=== PATIENT | male | born 1965 | race Caucasian/White ===

== ENCOUNTER → 2020-08-06 14:42 | Outpatient (BNVA) | payer MEDICAID, SELFPAY | PROVIDERS: Visit Provider Orthopaedic Surgery | DX: Z01.812 Encounter for preprocedural laboratory examination (principal); Z20.822 Contact with and (suspected) exposure to COVID-19 | CPT/HCPCS: 87635 ==

== ENCOUNTER 2020-08-12 05:32 | Day surgery (SDC) | payer MEDICAID, SELFPAY ==
[2020-08-11 17:14] VITALS: BMI 35.3
[2020-08-12] VITALS (8 sets, daily range): BP systolic 127–151; BP diastolic 87–99; PULSE 68–84; RESP 12–19; TEMP 36.1–36.5; O2SAT 97–100
[2020-08-12] MEDS: acetaminophen 500 mg Tablet 1000 MG PO (06:33)
[2020-08-12] MEDS: sodium chloride 0.9% 1,000 ML 30 ML IV (06:34)
[2020-08-12] MEDS: midazolam 1 mg/mL INJ 5 ML 5 MG IVP (06:50)
--- NOTE | 2020-08-12 07:06 | W.PM.OPSUD ---
Surgery/Procedure H&P Update DATE OF PROCEDURE: August 12, 2020 DATE H&P PERFORMED: 07/27/20 PREOP DIAGNOSIS: Rotator cuff tear Right shoulder PLANNED PROCEDURE: Operation Date: 08/12/20 07:00 Proposed Procedures p Shoulder Arthroscopy with subacromial decompression [id number] S43.421A(Right) - Yair Prather MD s Rotator Cuff Repair(Not Applicable) - Yair Prather MD
--- NOTE | 2020-08-12 07:07 | ANES.PREANE2 ---
Pre-Anesthetic Assessment Pre-Anesthetic Assessment: Height/Weight: Height 1.85 m Weight 121.563 kg Temp Pulse Resp BP Pulse Ox 97.7 F 84 18 127/87 98 08/12/20 06:05 08/12/20 06:05 08/12/20 06:05 08/12/20 06:05 08/12/20 06:05 Preop Diagnosis: Rotator cuff tear Right shoulder Proposed Procedure: Operation Date: 08/12/20 07:00 Proposed Procedures p Shoulder Arthroscopy with subacromial decompression [id number] S43.421A(Right) - Yair Prather MD s Rotator Cuff Repair(Not Applicable) - Yair Prather MD Was Beta Bj taken within 24 hours: Yes Was Clonidine taken within 24 hours: N/A Last intake: Intake Last Liquid Date 08/11/20 Last Liquid Time 22:00 Last Solid Date 08/11/20 Last Solid Time 22:00 Social: Social History: Tobacco and No alcohol Exam: Pre-Anes Outpt Exam: alert, oriented x 3 and regular rate & rhythm Airway: Submandibular: WNL Cervical ROM: WNL MP: 2 Dentition: Full Additional comments: Poor dentition Pulmonary: Pulmonary: COPD CV/HEM: CV/HEM: Arrythmia Neuropsych: Neuropsych: Neuropathy Comments: Chronic pain Anesthetic Plan: ASA status: 3 Anesthesia: General and Regional (specify below) (Right interscalene) Risk of > 500 ml blood loss (7ml/kg in children): No Meds/Allergies Current Medications: Current Medications Generic Name Dose Route Start Last Admin Trade Name Freq PRN Reason Stop Dose Admin Sodium Chloride 1,000 mls @ 30 ml s/hr 08/12/20 06:00 08/12/20 06:34 Sodium Chloride 0.9% IV 08/13/20 05:59 30 mls/hr .Q24H HARPAL Administration PFSH Anesthesia PFSH: Social History Smoking and tobacco status: current every day smoker cigars Cigars smoked per week: 3 and smokeless tobacco Smokeless tobacco user: chewing tobacco Smokeless tobacco details: 1 can per day Alcohol intake: former Year of sobriety/quit date alcohol: 2019 Data Anesthesia Cardiac Studies: No Data to Display
--- NOTE | 2020-08-12 07:08 | ANES.PROC ---
Anesthesia Procedures Procedure/Date: 08/12/20 Nerve Block ^: Nerve Block 1: Main Anesthesia: general anesthesia Time Out Performed: Yes Consent: requested by attending/covering physician, from patient, risks and benefits reviewed and patient agrees to proceed Nerve block location: interscalene (right) Anesthesia monitors applied: pulse oximetry, EKG, BP cuff and oxygen Nerve block position: semi sitting Anesthetic Used: ropivicaine 0.5% Amount of anesthesia used (mL): 30 Ultrasound used to: recognize landmarks and visualize and ID brachial plexus Nerve Stimulator Used?: No Interscalene/Femoral BLK: 2 stimuplex 22 g needle used for position and inplane approach, visualize local anesthetic spread and no vascular puncture identified Injection: neg aspiration of heme Patient Tolerated Procedure: well Complications: none
[2020-08-12] MEDS: EPINEPHrine 1 mg/mL INJ 2 MG (08:09)
--- NOTE | 2020-08-12 09:32 | PM.OP ---
Operative Report Date of procedure: August 12, 2020 Pre-op Diagnosis: Rotator cuff tear Right shoulder Post-op diagnosis: same Post-op Diagnosis: Right rotator cuff tear, impingement, instability biceps tendon Post-op Findings: Same Procedure Done: Arthroscopic Right rotator cuff repair Arthroscopic right biceps tenodesis Arthroscopic right subacromial decompression Implants: [employer]hew Q fix x2, [employer] Helicoil 4.0x2, [employer] Helicoil knotless 5.5x2 Pathology: none sent Surgeon: Yair Prather Anesthesia: General and Nerve Block (Interscalene block) Estimated blood loss (mL): 20 Findings: The patient had a rotator cuff tear beginning just anterior to the biceps tendon extending posteriorly approximately 2 cm with a centimeter and a half retraction. The biceps tendon was exposed in the bicipital groove but unstable. He had anterior spurring of his acromion. Condition: stable Disposition: PACU Procedure: The patient was given an interscalene block in holding and then was taken to the operating room and given 2 g of Ancef. He was positioned in the lateral position with his right arm in 20 pounds of traction. A timeout was performed. A posterior portal was made 2 cm inferior medial to the posterior corner of the acromion. A scope cannula and trocar were driven into the glenohumeral joint. An inflow cannula was placed anteriorly. The large rotator cuff tear was identified. Involvement of the biceps a sling was noted. The scope was then moved to the subacromial space and anterior lateral working portals were produced. Bursal tissue was removed. He had a fairly tight subacromial space with anterior spurring of acromion. Subacromial decompression was performed to make more room repair and add greater vascularity to potentiate healing. A 5 5 acromionizer is introduced and approximately 4 mm of anterior and inferior acromion removed. Attention was then focused on the biceps tendon. An incisor shaver was then used to debride the proximal bicipital groove. Through a lateral stab wound a Q fix anchor was placed. It was secured with a luggage tag stitch and alternating half hitches drawing the distal exposed biceps to the tuberosity. This was repeated approximately a centimeter proximally with a second Q fix reinforcing the repair. The scope was then placed into the glenohumeral joint. The Ruvalcaba [employer] Nephew Werewolf was used and ablated moved to move the remaining proximal stump. Instruments and cannulas that were then directed to the subacromial space. A shaver was used to debride the footprint of the rotator cuff tear. Through a lateral stab wound a Ru[employer]hew Helicoil 4.0 mm anchor with tape was placed posteriorly to meet and medially. A Ruvalcaba [employer]hew FirstPass suture passer was used to shuttle the 2 limbs of tape through the rotator cuff approximately 6 mm from the lateral margin of the tear and approximately 5 mm apart. The second Ru[employer]hew Helicoil anchor was placed in the anterior medial tuberosity and 2 sutures passed in identical fashion.. They were secured drawing the medial cuff to bone. All sutures were then passed through the lateral cannula. They were passed through a Ruvalcaba [employer]hew Helicoil knotless anchor which was placed in the central lateral debrided tuberosity. The sutures were secured in the anchor secured bringing the lateral cuff down to bone. Portals were closed with 3-0 Prolene. Sterile dressings were applied. The patient was placed in a sling, extubated, and taken to recovery room in stable condition.
--- NOTE | 2020-08-12 09:51 | P.PCN_ITS ---
PACU note PACU note: VSS, Good respiratory effort, report to WILDLIFE MANAGER Post-Anesthesia Exam: awake
--- NOTE | 2020-08-12 09:51 | PM.PACU ---
PACU note PACU note: VSS, Good respiratory effort, report to POT FLUXER Post-Anesthesia Exam: awake
--- NOTE | 2020-08-12 10:26 | SUR.PHASEI ---
0955 PT HAS NO SENSATION/MOVEMENT TO R. HAND, CAP REFILL <3 SEC, RADIAL PULSE PALPATED
--- NOTE | 2020-08-12 10:56 | SUR.PHASEII ---
patients dressing had moderate drainage visible. dressing changed with 4x4 gauze, abd, foam tape reapplied.
--- NOTE | 2020-08-12 15:41 | ANE.PACU2 ---
Inpatient post-anesthesia follow up: Airway intact: Yes Vital signs: Temperature 97.6 F Pulse Rate 68 Respiratory Rate 18 Blood Pressure 127/92 Pulse Oximetry 98 Oxygen Delivery Me thod Room Air Oxygen Flow Rate 8 Fraction of Inspir ed Oxygen Hydration adequate: Yes Nausea and vomiting: No Pain level: 1 Mental status: Baseline
== END 2020-08-12 11:10 | disposition home or self-care (01) ==
PROVIDERS: Visit Provider Orthopaedic Surgery
PROC: (CPT 29805; principal; 2020-08-12 07:00)
PROC: (CPT 29826; 2020-08-12 07:00)
DX: M75.101 Unspecified rotator cuff tear or rupture of right shoulder, not specified as traumatic (principal); J44.9 Chronic obstructive pulmonary disease, unspecified; G89.29 Other chronic pain; F17.290 Nicotine dependence, other tobacco product, uncomplicated
CPT/HCPCS: 29826; 29827; 29828; 96374; C1713; J0171; J0330; J0690; J1100; J2250; J2405; J2704; J2795; J3010; J3490; J7030

== ENCOUNTER 2020-11-15 04:07 | Emergency (ER) | payer MEDICAID, SELFPAY ==
[2020-11-15 04:10] VITALS: BP 135/94; PULSE 95; RESP 18; TEMP 36.6; O2SAT 97; BMI 22.4
[2020-11-15 04:32] LABS: Basophils % 0.3 %; Eosinophils # 0.1 10^3/uL (0.0-0.8); Eosinophils % 1.2 %; Hemoglobin 13.5 g/dL (11.7-16.6); Lymphocytes # 1.9 10^3/uL (0.8-4.8); Lymphocytes % 15.3 %; Mean Corpuscular HGB Conc 32.1 g/dL (30.0-36.0); Mean Corpuscular Hemoglobin 29.9 pg (28.0-34.0); Mean Corpuscular Volume 92.9 fL (80-94); Mean Platelet Volume 10.1 fL (7.4-10.4); Monocytes # 0.7 10^3/uL (0.2-0.9); Monocytes % 5.4 %; Neutrophils # 9.43 10^3/uL (1.8-7.7); Neutrophils % 77.6 %; Nucleated Red Blood Cells % 0 %; Platelet Count 283 10^3/cmm (130-400); Red Blood Count 4.52 10^6/uL (4.1-5.3); Red Cell Distribution Width 12.9 % (12.1-15.1); White Blood Count 12.1 10^3/uL (4.0-10.0)
--- NOTE | 2020-11-15 04:37 | W.ED.ABDPA2 ---
Documented by User: Laron Tesfaye DO 11/20/20 13:16 HPI - Abdominal Pain General: Chief Complaint: Abdominal Pain Stated Complaint: lower back and abd pain Time Seen by Provider: 11/15/20 04:14 History of Present Illness: HPI narrative: 55-year-old male presents complaining of abdominal pain that began last night around 11:00 he had some pain in his back last week that he was seen in primary care doctor started on Naprosyn seem to getting better little but he still has some positional aspect of his pain pain is referred now down into the right lower quadrant he denies any dysuria urgency or frequency denies any nausea vomiting or diarrhea no recent fever sweats or chills no cough or shortness of breath. MD elicited complaint: abdominal pain Pertinent past history: constipation Onset (ago): hour(s) Pain Consistency: constant Location: RLQ Severity: moderate Quality: cramping and stabbing Radiation: none Exacerbating factors: movement Relieving factors: rest Associated Symptoms: Reports GI cramping and dyspepsia; Denies anorexia, belching, bloating, change in bowel habits, change in stool character, chills, coffee ground emesis, constipation, diarrhea, dysuria, excessive flatus, fever(s), heartburn, hematochezia, hematuria, hematemesis, fecal incontinence, loose stools, melena, nausea, poor appetite, syncope and vomiting Review of Systems Const: Denies: fever(s) or chills ENMT: Denies: throat pain, ear or mastoid pain, nasal discharge or nasal congestion Card: Denies: syncope Resp: Denies: dyspnea, productive cough or non-productive cough GI: Reports: GI cramping; Denies: nausea, vomiting, hematemesis, coffee ground emesis, heartburn, diarrhea, constipation, bloating, belching, excessive flatus, fecal incontinence, change in bowel habits, change in stool character, hematochezia or melena : Denies: dysuria or hematuria Skin/Breast: Denies: rash or pruritus PFSH ED PFSH: Social History Smoking and tobacco status: current every day smoker cigars Cigars smoked per week: 3 and smokeless tobacco Smokeless tobacco user: chewing tobacco Smokeless tobacco details: 1 can per day Alcohol intake: former Year of sobriety/quit date alcohol: 2019 Physical Exam Const: COMMON NORMALS: no acute distress GENERAL APPEARANCE: cooperative and comfortable ORIENTATION/CONSCIOUSNESS: Yes oriented to person, Yes oriented to place and Yes oriented to time HENMT: COMMON NORMALS: normocephalic, atraumatic and hearing grossly normal bilaterally HEAD & SCALP: normocephalic and atraumatic Neck/C-Spine: COMMON NORMALS: no JVD Resp: COMMON NORMALS: normal respiratory effort, No retractions, No use of accessory muscles and clear to auscultation bilaterally AUSCULTATION: clear to auscultation bilaterally Cardio: COMMON NORMALS: no JVD, regular rate, regular rhythm and No murmurs present (Cardio) RATE: regular rate RHYTHM: regular rhythm GI: COMMON NORMALS: No hepatosplenomegaly present AUSCULTATION: Yes normoactive bowel sounds PALPATION: Yes Tenderness to palpation present (GI) Details: RLQ, No Guarding due to palpation present (GI) and Yes No hepatosplenomegaly present Extremity: COMMON NORMALS: normal to inspection, capillary refill normal, no clubbing, cyanosis or edema, no calf tenderness and no pedal edema Neuro: SENSORIUM/ORIENTATION: Yes oriented to person, Yes oriented to place and Yes oriented to time Skin: COMMON NORMALS: no rashes or lesions noted GENERAL SKIN EXAM: no rashes or lesions noted Course Vital Signs: Vital signs: Vital Signs Temperature 98.4 F 11/15/20 06:57 Pulse Rate 102 H 11/15/20 07:26 Respiratory Rate 19 H 11/15/20 07:26 Blood Pressure 132/81 11/15/20 07:26 Pulse Oximetry 98 11/15/20 07:26 MDM - Abdominal Pain MDM Narrative: Medical decision making narrative: Care turned to Dr. Waldron at change of shift see his note for final diagnosis and disposition Lab Data: Attestation: I reviewed the patient's lab results. Labs: Lab Results 11/15/20 11/15/20 11/15/20 Range/Units 04:20 04:20 06:47 WBC 12.1 H (4.0-10.0) 10^3/ uL RBC 4.52 (4.1-5.3) 10^6/u L Hgb 13.5 (11.7-16.6) g/dL Hct 42.0 (42.0-52.0) % MCV 92.9 (80-94) fL MCH 29.9 (28.0-34.0) pg MCHC 32.1 (30.0-36.0) g/dL RDW 12.9 (12.1-15.1) % Plt Count 283 (130-400) 10^3/c mm MPV 10.1 (7.4-10.4) fL Neut % (Auto) 77.6 % Lymph % (Auto) 15.3 % [place] % (Auto) 5.4 % Eos % (Auto) 1.2 % Baso % (Auto) 0.3 % Neut # (Auto) 9.43 H (1.8-7.7) 10^3/u L Lymph # (Auto) 1.9 (0.8-4.8) 10^3/u L [place] # (Auto) 0.7 (0.2-0.9) 10^3/u L Eos # (Auto) 0.1 (0.0-0.8) 10^3/u L Baso # (Auto) 0.0 (0.0-0.1) 10^3/u L Nucleated RBC % (a uto) 0 % Nucleated RBCs # 0.0 /100WBC Sodium 138 (136-145) mmol/L Potassium 3.8 (3.5-5.1) mmol/L Chloride 102 (98-107) mmol/L Carbon Dioxide 27 (22-29) mmol/L Anion Gap 12.8 (5-19) BUN 21 H (6-20) mg/dL Creatinine 0.8 (0.7-1.2) mg/dL GFR Calculation 100.0 (90-130) mL/min Glucose 105 (65-115) mg/dL Calculated Osmolal ity 289 (285-295) mOsm/k g Calcium 8.5 (8.5-10.5) mg/dL Total Bilirubin 0.3 (0.15-1.2) mg/dL AST 14 (0-40) U/L ALT 21 (0-41) U/L Alkaline Phosphata se 115 (40-130) IU/L Total Protein 6.8 (6.6-8.7) g/dL Albumin 4.3 (3.5-5.2) g/dL Globulin 2.5 (1.3-4.6) g/dL Lipase 23 (13-60) U/L Urine Color Yellow (Yellow) Urine Appearance Clear (CLEAR) Urine pH 7 (5-7) Ur Specific Gravit y 1.005 (1.005-1.030) Urine Protein Neg (Negative) Urine Glucose (UA) Norm (Normal) Urine Ketones Negative (Negative) Urine Blood Neg (Negative) Urine Nitrate Negative (Negative) Urine Bilirubin Neg (Negative) Urine Urobilinogen Norm (Negative) mg/dL Ur Leukocyte Ginny ase Negative (Negative) Discharge Plan Discharge Patient Disposition: Home Clinical Impression: Abdominal pain Condition: Stable Prescriptions: New diclofenac sodium 75 mg tablet,delayed release (DR/EC) 75 mg PO BID PRN (Reason: pain) Qty: 20 RF: 0 No Action tramadol 50 mg tablet 50 mg PO Q6H PRN (Reason: pain) Qty: 30 RF: 0 atorvastatin 40 mg Tablet 40 mg PO DAILY RF: 0 amitriptyline 50 mg Tablet 50 mg PO DAILY RF: 0 pantoprazole 40 mg Tablet,Delayed Release (Dr/Ec) 40 mg PO DAILY RF: 0 montelukast [Singulair] 10 mg Tablet 10 mg PO DAILY RF: 0 naproxen 500 mg Tablet 500 mg PO BID RF: 0 metoprolol succinate 25 mg Capsule,Sprinkle,Er 24hr 12.5 mg PO BEDTIME RF: 0 Discharge Orders: Discharge ED (Routine); Ordered 11/15/20 Ordered By: Elvin Waldron Discharge Diet: Advance as tolerated Discharge Activity: Resume usual activity Patient Instructions: Abdominal Pain (ED), Opioid Safety Activity Restrictions/Additional Instructions: Encourage p.o. fluids. Tylenol Motrin as needed as needed for pain. Follow-up with PCP in 2 to 3 days. Coding Level of Care Code ED Professor Of Industrial Technology for Chg Fwd Exam Comprehensive Documented by User: Elvin Waldron MD 11/15/20 07:09 HPI - Abdominal Pain General: Chief Complaint: Abdominal Pain Stated Complaint: lower back and abd pain Time Seen by Provider: 11/15/20 04:14 [facility] ED PFSH: Social History Smoking and tobacco status: current every day smoker cigars Cigars smoked per week: 3 and smokeless tobacco Smokeless tobacco user: chewing tobacco Smokeless tobacco details: 1 can per day Alcohol intake: former Year of sobriety/quit date alcohol: 2019 Course Vital Signs: Vital signs: Vital Signs Temperature 98.4 F 11/15/20 06:57 Pulse Rate 102 H 11/15/20 07:26 Respiratory Rate 19 H 11/15/20 07:26 Blood Pressure 132/81 11/15/20 07:26 Pulse Oximetry 98 11/15/20 07:26 MDM - Abdominal Pain MDM Narrative: Medical decision making narrative: Negative evaluation in the emergency department any acute findings. Nonspecific leukocytosis. Negative urine. Negative CT scan. Will place patient on diclofenac. Patient is to encourage p.o. fluids and follow-up with PCP in 2 to 3 days. Differential Diagnosis: Differential diagnosis abdominal pain: Likely abdominal pain, acute appendicitis, calculus of kidney, constipation, diverticulitis, endometriosis, gastroenteritis, pancreatitis and small bowel obstruction Medical Records: Attestation: I reviewed the patient's medical records. Lab Data: Attestation: I reviewed the patient's lab results. Labs: Lab Results 11/15/20 11/15/20 11/15/20 Range/Units 04:20 04:20 06:47 WBC 12.1 H (4.0-10.0) 10^3/ uL RBC 4.52 (4.1-5.3) 10^6/u L Hgb 13.5 (11.7-16.6) g/dL Hct 42.0 (42.0-52.0) % MCV 92.9 (80-94) fL MCH 29.9 (28.0-34.0) pg MCHC 32.1 (30.0-36.0) g/dL RDW 12.9 (12.1-15.1) % Plt Count 283 (130-400) 10^3/c mm MPV 10.1 (7.4-10.4) fL Neut % (Auto) 77.6 % Lymph % (Auto) 15.3 % [place] % (Auto) 5.4 % Eos % (Auto) 1.2 % Baso % (Auto) 0.3 % Neut # (Auto) 9.43 H (1.8-7.7) 10^3/u L Lymph # (Auto) 1.9 (0.8-4.8) 10^3/u L [place] # (Auto) 0.7 (0.2-0.9) 10^3/u L Eos # (Auto) 0.1 (0.0-0.8) 10^3/u L Baso # (Auto) 0.0 (0.0-0.1) 10^3/u L Nucleated RBC % (a uto) 0 % Nucleated RBCs # 0.0 /100WBC Sodium 138 (136-145) mmol/L Potassium 3.8 (3.5-5.1) mmol/L Chloride 102 (98-107) mmol/L Carbon Dioxide 27 (22-29) mmol/L Anion Gap 12.8 (5-19) BUN 21 H (6-20) mg/dL Creatinine 0.8 (0.7-1.2) mg/dL GFR Calculation 100.0 (90-130) mL/min Glucose 105 (65-115) mg/dL Calculated Osmolal ity 289 (285-295) mOsm/k g Calcium 8.5 (8.5-10.5) mg/dL Total Bilirubin 0.3 (0.15-1.2) mg/dL AST 14 (0-40) U/L ALT 21 (0-41) U/L Alkaline Phosphata se 115 (40-130) IU/L Total Protein 6.8 (6.6-8.7) g/dL Albumin 4.3 (3.5-5.2) g/dL Globulin 2.5 (1.3-4.6) g/dL Lipase 23 (13-60) U/L Urine Color Yellow (Yellow) Urine Appearance Clear (CLEAR) Urine pH 7 (5-7) Ur Specific Gravit y 1.005 (1.005-1.030) Urine Protein Neg (Negative) Urine Glucose (UA) Norm (Normal) Urine Ketones Negative (Negative) Urine Blood Neg (Negative) Urine Nitrate Negative (Negative) Urine Bilirubin Neg (Negative) Urine Urobilinogen Norm (Negative) mg/dL Ur Leukocyte Ginny ase Negative (Negative) Imaging Data ^: CT Abd/Pel: Attestation: I personally reviewed and interpreted this imaging study as follows: Radiologist's impression: FINDINGS: Lungs: The lung bases are clear. Liver: There are two very small low attenuation areas in the liver, larger in the dome of the right lobe measures about 6 mm. These are nonspecific, but are statistically most likely small cysts or cavernous hemangiomas. Gallbladder and bile ducts: No visible gallstones by CT. Ultrasound would be more sensitive for detecting gallstones, if clinically needed. No biliary tree dilation. Pancreas: Unremarkable. Spleen: Couple of calcifications within the spleen. Adrenal glands: Unremarkable. Kidneys and ureters: No hydronephrosis of either kidney. No visible ureteral calculus. No perinephric fluid. The kidneys enhance homogeneously. Stomach and bowel: Possibility of slightly thickened mucosa/wall in the distal antrum of the stomach. This is a nonspecific appearance, and may well be transient on CT, but could also represent evidence for gastritis or peptic ulcer disease. Please correlate clinically. There is diverticulosis involving the sigmoid colon, without CT evidence of diverticulitis. Appendix: The appendix is visualized and appears normal. Intraperitoneal space: No free air, ascites, or bowel distention. Vasculature: No evidence for abdominal aortic aneurysm. Lymph nodes: No retroperitoneal adenopathy. Urinary bladder: Mild to moderate diffuse urinary bladder wall thickening. This may be related to the prostate enlargement. While nonspecific, this could also indicate evidence for cystitis. Please correlate clinically. Reproductive: Prostate enlargement with transverse diameter of about 4 cm. Bones/joints: Mild thoracolumbar scoliosis. Soft tissues: No significant acute finding. CT/CT abdomen pelvis w con* [id number] IMPRESSION: 1. Normal appendix. 2. No free air or bowel distention. 3. Possible thickened mucosa/wall in the distal stomach, see above discussion. 4. Diverticulosis involving the sigmoid colon, without CT evidence of diverticulitis. 5. Prostate enlargement and diffuse urinary bladder wall thickening, see above. 6. No hydronephrosis of either kidney. No visible ureteral calculus. 7. Other findings discussed above. Discharge Plan Discharge Patient Disposition: Home Clinical Impression: Abdominal pain Condition: Stable Prescriptions: New diclofenac sodium 75 mg tablet,delayed release (DR/EC) 75 mg PO BID PRN (Reason: pain) Qty: 20 RF: 0 No Action tramadol 50 mg tablet 50 mg PO Q6H PRN (Reason: pain) Qty: 30 RF: 0 atorvastatin 40 mg Tablet 40 mg PO DAILY RF: 0 amitriptyline 50 mg Tablet 50 mg PO DAILY RF: 0 pantoprazole 40 mg Tablet,Delayed Release (Dr/Ec) 40 mg PO DAILY RF: 0 montelukast [Singulair] 10 mg Tablet 10 mg PO DAILY RF: 0 naproxen 500 mg Tablet 500 mg PO BID RF: 0 metoprolol succinate 25 mg Capsule,Sprinkle,Er 24hr 12.5 mg PO BEDTIME RF: 0 Discharge Orders: Discharge ED (Routine); Ordered 11/15/20 Ordered By: Elvin Waldron Discharge Diet: Advance as tolerated Discharge Activity: Resume usual activity Patient Instructions: Abdominal Pain (ED), Opioid Safety Activity Restrictions/Additional Instructions: Encourage p.o. fluids. Tylenol Motrin as needed as needed for pain. Follow-up with PCP in 2 to 3 days. Coding Level of Care Code ED Professor Of Industrial Technology for Dorian Fwd Exam Comprehensive
--- NOTE | 2020-11-15 04:41 | CTR_ITS ---
PROCEDURE INFORMATION: Exam: CT Abdomen And Pelvis With Contrast Exam date and time: 11/15/2020 4:41 AM Age: 55 years old Clinical indication: Abdominal pain; Generalized; Additional info: Abd pain TECHNIQUE: Imaging protocol: Computed tomography of the abdomen and pelvis with contrast. Radiation optimization: All CT scans at this facility use at least one of these dose optimization techniques: automated exposure control; mA and/or kV adjustment per patient size (includes targeted exams where dose is matched to clinical indication); or iterative reconstruction. Contrast material: OMNI 300; Contrast volume: 95 ml; Contrast route: INTRAVENOUS (IV); COMPARISON: No relevant prior studies available. RADIATION DOSE METRICS: Total DLP (mGy-cm): 1468.33 FINDINGS: Lungs: The lung bases are clear. Liver: There are two very small low attenuation areas in the liver, larger in the dome of the right lobe measures about 6 mm. These are nonspecific, but are statistically most likely small cysts or cavernous hemangiomas. Gallbladder and bile ducts: No visible gallstones by CT. Ultrasound would be more sensitive for detecting gallstones, if clinically needed. No biliary tree dilation. Pancreas: Unremarkable. Spleen: Couple of calcifications within the spleen. Adrenal glands: Unremarkable. Kidneys and ureters: No hydronephrosis of either kidney. No visible ureteral calculus. No perinephric fluid. The kidneys enhance homogeneously. Stomach and bowel: Possibility of slightly thickened mucosa/wall in the distal antrum of the stomach. This is a nonspecific appearance, and may well be transient on CT, but could also represent evidence for gastritis or peptic ulcer disease. Please correlate clinically. There is diverticulosis involving the sigmoid colon, without CT evidence of diverticulitis. Appendix: The appendix is visualized and appears normal. Intraperitoneal space: No free air, ascites, or bowel distention. Vasculature: No evidence for abdominal aortic aneurysm. Lymph nodes: No retroperitoneal adenopathy. Urinary bladder: Mild to moderate diffuse urinary bladder wall thickening. This may be related to the prostate enlargement. While nonspecific, this could also indicate evidence for cystitis. Please correlate clinically. Reproductive: Prostate enlargement with transverse diameter of about 4 cm. Bones/joints: Mild thoracolumbar scoliosis. Soft tissues: No significant acute finding. CT/CT abdomen pelvis w con* [id number] IMPRESSION: 1. Normal appendix. 2. No free air or bowel distention. 3. Possible thickened mucosa/wall in the distal stomach, see above discussion. 4. Diverticulosis involving the sigmoid colon, without CT evidence of diverticulitis. 5. Prostate enlargement and diffuse urinary bladder wall thickening, see above. 6. No hydronephrosis of either kidney. No visible ureteral calculus. 7. Other findings discussed above. Radiation Dose CTDIVOL = (mGy): DLP = 1468.33 (mGy-cm)
[2020-11-15 04:58] LABS: Alanine Aminotransferase 21 U/L (0-41); Albumin Level 4.3 g/dL (3.5-5.2); Alkaline Phosphatase 115 IU/L (40-130); Anion Gap 12.8 (5-19); Aspartate Amino Transferase 14 U/L (0-40); Blood Urea Nitrogen 21 mg/dL (6-20); Calcium 8.5 mg/dL (8.5-10.5); Carbon Dioxide 27 mmol/L (22-29); Chloride 102 mmol/L (98-107); Globulin 2.5 g/dL (1.3-4.6); Glucose 105 mg/dL (65-115); Lipase 23 U/L (13-60); Osmolality Calculated 289 mOsm/kg (285-295); Potassium 3.8 mmol/L (3.5-5.1); Sodium 138 mmol/L (136-145); Total Bilirubin 0.3 mg/dL (0.15-1.2); Total Protein 6.8 g/dL (6.6-8.7)
[2020-11-15] MEDS: sodium chloride 0.9% 1,000 ML 999 ML IV (05:04)
[2020-11-15] MEDS: iohexol 300 mg/mL 100 mL Btl IV (05:27)
[2020-11-15 06:14] VITALS: BP 146/88; PULSE 85; RESP 19; O2SAT 98
--- NOTE | 2020-11-15 06:25 | PC.NURSE ---
asked for thermostat to be changed but it couldn't be changed.
[2020-11-15 06:50] LABS: Add Urine Microscopic? NO; Charge for UA Resulting for Rev
[2020-11-15 06:57] VITALS: BP 137/85; PULSE 96; RESP 16; TEMP 36.9; O2SAT 99
[2020-11-15 07:06] LABS: Bilirubin Urine Neg (Negative); Blood Urine Neg (Negative); Glucose Urine UA Norm (Normal); Ketones Urine Negative (Negative); Leukocyte Esterase Urine Negative (Negative); Nitrate Urine Negative (Negative); Protein Urine Neg (Negative); Specific Gravity, Urine 1.005 (1.005-1.030); Urine Appearance Clear (CLEAR); Urine Color Yellow (Yellow); Urobilinogen Urine Norm (Negative); pH Urine 7 (5-7)
[2020-11-15 07:26] VITALS: BP 132/81; PULSE 102; RESP 19; O2SAT 98
== END 2020-11-15 07:28 | disposition home or self-care (01) ==
PROVIDERS: Emergency Provider Family Medicine
DX: R10.31 Right lower quadrant pain (principal); F17.220 Nicotine dependence, chewing tobacco, uncomplicated; F17.290 Nicotine dependence, other tobacco product, uncomplicated
CPT/HCPCS: 74177; 80053; 81003; 83690; 85025; 96360; 99284; J7030; Q9967

== ENCOUNTER → 2020-11-25 12:57 | Outpatient (BNVA) | payer MEDICAID, SELFPAY | PROVIDERS: Referring Provider Physician Assistant; Visit Provider Podiatrist Foot & Ankle Surgery | DX: M79.671 Pain in right foot (principal); M72.2 Plantar fascial fibromatosis; G62.9 Polyneuropathy, unspecified | CPT/HCPCS: 73630 ==

== ENCOUNTER 2020-12-31 09:11 | Outpatient (CLI) | payer MEDICAID, SELFPAY ==
--- NOTE | 2020-12-31 09:30 | MR_ITS ---
WS: [id number] MRI LEFT SHOULDER NONCONTRAST TECHNIQUE: Sagittal T2, coronal T1, T2 and proton density imaging. Axial gradient PDE imaging. CLINICAL INFORMATION: M25.512 - Pain in left shoulder COMPARISON: None. FINDINGS: Mild degenerative arthritis AC joint. Mild downsloping of the acromion. Slight subacromial spurring. Mild chronic thinning of the distal supraspinatus. Normal infraspinatus. Normal teres minor and subsc apularis. No high-grade rotator cuff tears. Normal biceps tendon in the bicipital groove. This is slightly subluxed proximally. Normal intra-arturo cular biceps tendon. Grossly normal glenoid labrum. Normal bone marrow signal in the humeral head and glenoid. MR/MR shoulder LT wo con* [id number] IMPRESSION: 1. Mild degenerative arthritis at the AC joint with mild downsloping acromion. Slight subacromial spurring. 2. Mild chronic thinning of the distal supraspinatus. Rotator cuff is otherwis e normal. 3. Normal biceps tendon in the bicipital groove. Slight medial subluxation pro ximally. 4. Grossly normal glenoid labrum. 5. Normal bone marrow signal in the glenoid and humeral head and neck. 6. No other significant findings.
== END 2020-12-31 09:12 | disposition home or self-care (01) ==
LOC: RADSHAW 09:17
PROVIDERS: PCP Physician Assistant; Visit Provider Orthopaedic Surgery
DX: M19.012 Primary osteoarthritis, left shoulder (principal)
CPT/HCPCS: 73221

== ENCOUNTER 2021-01-11 15:28 | Outpatient (CLI) | payer MEDICAID, SELFPAY | END 2021-01-11 15:29 | disposition home or self-care (01) | LOC: SPT 01-12 09:28 | PROVIDERS: PCP Physician Assistant; Visit Provider Podiatrist Foot & Ankle Surgery | DX: Z46.89 Encounter for fitting and adjustment of other specified devices (principal); M72.2 Plantar fascial fibromatosis | CPT/HCPCS: 97760; L4397 ==

== ENCOUNTER → 2021-04-19 14:25 | Outpatient (BNVA) | payer MEDICAID, SELFPAY | PROVIDERS: PCP Physician Assistant; Visit Provider Orthopaedic Surgery | DX: M25.511 Pain in right shoulder (principal); S43.421A Sprain of right rotator cuff capsule, initial encounter; W19.XXXA Unspecified fall, initial encounter | CPT/HCPCS: 73030 ==

== ENCOUNTER 2021-06-01 13:07 | Outpatient (CLI) | payer MEDICAID, SELFPAY ==
--- NOTE | 2021-06-01 13:21 | MR_ITS ---
WS: [id number] MRI RIGHT SHOULDER NONCONTRAST TECHNIQUE: Sagittal T2, coronal T1, T2 and proton density imaging. Axial gradient PDE imaging. CLINICAL INFORMATION: S43.421A - Sprain of right rotator cuff capsule, initial ... COMPARISON: MRI July 09, 2020 FINDINGS: Mild degenerative arthritis at the AC joint. Mild downsloping acromion. Slight subacromial spurring. Mild narrowing of the subacromial space. High-grade complete tear of the supraspinatus with retractio n to the level of the glenohumeral joint. Infraspinatus is intact. Small amount of subacromial/subdel toid fluid. Normal teres minor. Normal subscapularis. Diminutive biceps tendon appears intact within the bicipital groove. Thinning of the intra-articular biceps tendons appears intact. Glenoid labrum appears grossly normal. Degenerative cystic changes inv olving the greater tuberosity. Degenerative narrowing at the glenohumeral joint. Susceptibility artif act compatible with suspected postoperative changes along the greater tuberosity. Recommend correlati on with clinical history. MR/MR shoulder RT wo con* [id number] IMPRESSION: 1. Previous High-grade full-thickness tear of the supraspinatus tendon with re traction to the level of glenohumeral joint. This may have been partially ancho red posteriorly in the interval. This was present on the prior study July 09, 2020. Uncovering of the anterolateral humeral head. 2. Rotator cuff is otherwise intact. 3. Diminutive biceps tendon in the bicipital groove appears grossly intact. Th inning of the intra-articular biceps tendon due to prior tear. 4. Mild degenerative arthritis AC joint with slight subacromial/subdeltoid flu id. 5. Degenerative cystic changes in the greater tuberosity. 6. Suspected postoperative changes along the rotator interval. Recommend corre lation with clinical history.
== END 2021-06-01 13:08 | disposition home or self-care (01) ==
LOC: RAD 13:11
PROVIDERS: PCP Nurse Practitioner; Visit Provider Orthopaedic Surgery
DX: M19.011 Primary osteoarthritis, right shoulder (principal); M75.101 Unspecified rotator cuff tear or rupture of right shoulder, not specified as traumatic; X58.XXXA Exposure to other specified factors, initial encounter
CPT/HCPCS: 73221

== ENCOUNTER → 2021-06-24 10:05 | Outpatient (BNVA) | payer MEDICAID, SELFPAY | PROVIDERS: PCP Nurse Practitioner; Visit Provider Orthopaedic Surgery | DX: Z01.812 Encounter for preprocedural laboratory examination (principal); Z20.822 Contact with and (suspected) exposure to COVID-19 | CPT/HCPCS: 87635 ==

== ENCOUNTER → 2021-07-01 10:08 | Outpatient (BNVA) | payer MEDICAID, SELFPAY | PROVIDERS: PCP Nurse Practitioner; Visit Provider Orthopaedic Surgery | DX: Z20.822 Contact with and (suspected) exposure to COVID-19 (principal); Z01.812 Encounter for preprocedural laboratory examination | CPT/HCPCS: 87635 ==

== ENCOUNTER 2021-07-04 11:07 | Day surgery (SDC) | payer MEDICAID, SELFPAY ==
[2021-07-01 11:00] VITALS: BMI 21.8
[2021-07-04] VITALS (10 sets, daily range): BP systolic 103–125; BP diastolic 71–90; PULSE 83–95; RESP 16–18; TEMP 36.2–36.8; O2SAT 95–100
[2021-07-04] MEDS: sodium chloride 0.9% 1,000 ML 30 ML IV (12:15)
--- NOTE | 2021-07-04 12:25 | ANES.PREANE2 ---
Pre-Anesthetic Assessment Height/Weight: Height 1.88 m Weight 77.111 kg Temp Pulse Resp BP Pulse Ox 98.2 F 95 16 103/71 100 07/04/21 11:26 07/04/21 11:26 07/04/21 11:26 07/04/21 11:26 07/04/21 11:26 Preop Diagnosis: Rotator cuff tear Right shoulder Operation Date: 07/04/21 12:40 Proposed Procedures p Rotator Cuff Repair/[id number]/M75.101(Right) - Yair Prather MD s Shoulder Arthroscopy(Right) - Yair Prather MD Familial anesthetic complications: None Was Beta Bj taken within 24 hours: N/A Was Clonidine taken within 24 hours: N/A Last intake: Intake Last Liquid Date 07/03/21 Last Liquid Time 23:55 Last Solid Date 07/03/21 Last Solid Time 21:00 Social Tobacco and No alcohol Airway Mallampati: Class III Dentition: other (poor dentition) Pulmonary Chronic Obstructive Pulmonary Disease Neuropsych Neuropathy Anesthetic Plan ASA status: 3 Anesthesia: General Medications/Allergies Home Medications Medication Instructions Recorded Confirmed Last Taken Type atorvastatin 40 mg tablet 40 mg PO DAILY 08/11/20 07/04/21 07/03/21 20:00 History pantoprazole 40 mg tablet,delayed 40 mg PO DAILY 08/11/20 07/04/21 07/03/21 20:00 History release Night splint #1 ea 01/11/21 06/28/21 Unknown Rx gabapentin 300 mg capsule 400 mg PO ONCE 01/11/21 07/04/21 07/03/21 20:00 History tizanidine 4 mg capsule 4 mg PO TID cap 01/11/21 07/04/21 07/03/21 20:00 History cefdinir 300 mg capsule 300 mg PO DAILY 07/01/21 07/04/21 07/03/21 20:00 History cetirizine 10 mg tablet 10 mg PO DAILY 07/01/21 07/04/21 07/03/21 20:00 History cyanocobalamin (vitamin B-12) 2,000 mcg PO DAILY 07/01/21 07/04/21 07/03/21 08:00 History 2,000 mcg tablet,extended release (Vitamin B-12 ER) pregabalin 75 mg capsule (Lyrica) 75 mg PO BID 07/01/21 07/04/21 07/03/21 20:00 History ropinirole 1 mg tablet 1 mg PO DAILY 07/01/21 07/04/21 07/03/21 20:00 History tamsulosin 0.4 mg capsule 0.4 mg PO DAILY 07/01/21 07/04/21 07/03/21 20:00 History Allergies Allergy/AdvReac Type Severity Reaction Status Date / Time codeine Allergy ADR-Nausea Verified 07/01/21 10:49 [facility] Anesthesia Social History Smoking and tobacco status: current every day smoker cigars Cigars smoked per week: 3 and smokeless tobacco Smokeless tobacco user: chewing tobacco Smokeless tobacco details: 1 can per day Alcohol intake: former Year of sobriety/quit date alcohol: 2019 Data Anesthesia Cardiac Studies: No Data to Display
--- NOTE | 2021-07-04 12:26 | ANES.PROC ---
Anesthesia Procedures Procedure/Date: 07/04/21 Nerve Block ^: Nerve Block 1: Main Anesthesia: general anesthesia Time Out Performed: Yes Nerve block location: interscalene (R) Anesthesia monitors applied: pulse oximetry, EKG, BP cuff and oxygen Nerve block position: semi sitting Anesthetic Used: ropivicaine 0.5% and with decadron Amount of anesthesia used (mL): 20 Ultrasound used to: visualize and ID brachial plexus Nerve Stimulator Used?: No Injection: neg aspiration of heme Patient Tolerated Procedure: well Complications: none
[2021-07-04] MEDS: acetaminophen 500 mg Tablet 1000 MG PO (12:32)
--- NOTE | 2021-07-04 13:29 | W.PM.OPSUD ---
Surgery/Procedure H&P Update DATE OF PROCEDURE: July 04, 2021 DATE H&P PERFORMED: 06/21/21 H&P UPDATE INFORMATION: I have reviewed H&P completed within last 30 days PREOP DIAGNOSIS: Rotator cuff tear Right shoulder PLANNED PROCEDURE: Operation Date: 07/04/21 12:40 Proposed Procedures p Rotator Cuff Repair/78216/M75.101(Right) - Yair Prather MD s Shoulder Arthroscopy(Right) - Yair Prather MD
--- NOTE | 2021-07-04 16:21 | PM.OP ---
Operative Report Date of procedure: July 04, 2021 Pre-op diagnosis: Preop Diagnosis Rotator cuff tear Right shoulder Post-op diagnosis: same Procedure done: Arthroscopic repair right rotator cuff with bio inductive patch Implants: Ruvalcaba [employer] Nephew Regeneten patch, Ruvalcaba [employer] Nephew Helicoil 4.5 mm anchors with tape x2, Ruvalcaba [employer]hew Helicoil knotless 5.5x1 Pathology: none sent Surgeon: Yair Prather Anesthesia: General and Nerve Block (Interscalene) Estimated blood loss: 10 Condition: stable Disposition: PACU Procedure: Mayank was taken to the operating room after interscalene block was provided by anesthesia. He was given 2 g of Ancef and positioned in the lateral position with his right arm in 15 pounds of traction. A timeout was performed. A posterior portal was made in the previous scar and the subacromial space was entered. Anterior lateral portal were created in the anterior and lateral inflow cannula were placed. The large rotator cuff tear was identified. It was a crescent configuration perhaps 2 cm from anterior to posterior with 2 cm of retraction. Tendon quality was reasonable and the tear was fairly mobile. An incisor shaver is used to debride the footprint down to vascular bed. With manipulation of the fracture there appeared to be a L component based posteriorly. Utilizing the Ruvalcaba [employer] Nephew FirstPass suture passer to Ultratape sutures were passed from the posterior tear to a more anterior and medial position and secured drawn the apex of the tear posteriorly and laterally. Next through a small stab wound a Ruvalcaba [employer] Nephew Helicoil 4.5 mm anchor was placed in the posterior and medial footprint. Using the Ruvalcaba [employer] Nephew FirstPass each limb of tape was passed through the rotator cuff approximately 5 mm apart. A second anchor was placed in anterior medial footprint and 2 sutures passed in identical fashion. The sutures were then secured drawing the cuff to the medial footprint, requiring only modest tension. Next all 4 sutures were brought through a Ruvalcaba [employer] Nephew Helicoil knotless anchor and through the lateral portal the sutures were secured drawing the cuff down to the more lateral footprint. Through the more lateral stab wound a Ruvalcaba and Nephew Regeneten patch was introduced laying over the posterior intratendinous repair and extending from the greater tuberosity bed medially. It was fixed with 7 soft tissue nona and 3 of bone nona laterally. Portals were closed with 3-0 Prolene. Sterile dressings were applied. The patient was placed in abduction pillow. He was extubated taken to recovery room in stable condition.
--- NOTE | 2021-07-04 18:00 | ANE.PACU2 ---
Inpatient post-anesthesia follow up: Airway intact: Yes Vital signs: Temperature 97.1 F Pulse Rate 88 Respiratory Rate 18 Blood Pressure 125/90 Pulse Oximetry 99 Oxygen Delivery Me thod Room Air Oxygen Flow Rate Fraction of Inspir ed Oxygen Hydration adequate: Yes Nausea and vomiting: No Pain level: 3 Mental status: Baseline
== END 2021-07-04 16:05 | disposition home or self-care (01) ==
PROVIDERS: PCP Nurse Practitioner; Visit Provider Orthopaedic Surgery
PROC: (CPT 29827; principal; 2021-07-04 12:10)
PROC: (CPT 29805; 2021-07-04 12:10)
DX: M75.101 Unspecified rotator cuff tear or rupture of right shoulder, not specified as traumatic (principal); J44.9 Chronic obstructive pulmonary disease, unspecified; F17.220 Nicotine dependence, chewing tobacco, uncomplicated
CPT/HCPCS: 29827; 64415; 76942; 96374; C1713; J0690; J1100; J2250; J2405; J2704; J2710; J2795; J3010; J3490; J7030

== ENCOUNTER → 2021-12-06 13:15 | Outpatient (BNVA) | payer MEDICAID, SELFPAY | PROVIDERS: PCP Nurse Practitioner; Visit Provider Orthopaedic Surgery | DX: Z98.890 Other specified postprocedural states (principal); M67.912 Unspecified disorder of synovium and tendon, left shoulder | CPT/HCPCS: 99213 ==

== ENCOUNTER → 2022-01-03 14:00 | Outpatient (BNVA) | payer MEDICAID, SELFPAY | PROVIDERS: PCP Nurse Practitioner; Visit Provider Physician Assistant | DX: M51.36 Other intervertebral disc degeneration, lumbar region (principal) | CPT/HCPCS: 72110; 99203 ==

== ENCOUNTER 2022-02-04 16:53 | Emergency (ER) | payer MEDICAID, SELFPAY ==
[2022-02-04 17:24] VITALS: BP 100/66; PULSE 85; RESP 18; TEMP 36.7; O2SAT 96; BMI 22.4
--- NOTE | 2022-02-04 17:32 | CTR_ITS ---
PROCEDURE INFORMATION: Exam: CT Head Without Contrast Exam date and time: 02/04/2022 5:52 PM Age: 56 years old Clinical indication: Injury or trauma; Fall; Blunt trauma (contusions or hematomas); Consciousness not specified TECHNIQUE: Imaging protocol: Computed tomography of the head without contrast. Axial, coronal and sagittal reformatted images were created and reviewed. Radiation optimization: All CT scans at this facility use at least one of these dose optimization techniques: automated exposure control; mA and/or kV adjustment per patient size (includes targeted exams where dose is matched to clinical indication); or iterative reconstruction. COMPARISON: No relevant prior studies available. RADIATION DOSE METRICS: Total DLP (mGy-cm): 1140.92 FINDINGS: Brain: No CT evidence of acute intracranial hemorrhage or acute territorial infarction. No significant mass effect or midline shift. Basal cisterns patent. Cerebral ventricles: Normal in size and configuration. Paranasal sinuses: Polypoid ethmoid, frontal and left maxillary sinus mucosal thickening. No air-fluid levels. Mastoid air cells: Grossly unremarkable. Bones/joints: No acute osseous abnormality. Soft tissues: Grossly unremarkable. CT/CT head wo con* [id number]: 1[address] No CT evidence of acute intracranial pathology. 2. Additional findings, as above.
[2022-02-04 17:39] VITALS: BP 107/65; PULSE 78; RESP 16; O2SAT 96
--- NOTE | 2022-02-04 17:47 | CTR_ITS ---
PROCEDURE INFORMATION: Exam: CT Cervical Spine Without Contrast Exam date and time: 02/04/2022 5:52 PM Age: 56 years old Clinical indication: Pain and injury or trauma; Fall; Bleeding/hemorrhage; Neck pain TECHNIQUE: Imaging protocol: Computed tomography of the cervical spine without contrast. Axial, coronal and sagittal reformatted images were created and reviewed. Radiation optimization: All CT scans at this facility use at least one of these dose optimization techniques: automated exposure control; mA and/or kV adjustment per patient size (includes targeted exams where dose is matched to clinical indication); or iterative reconstruction. COMPARISON: MR shoulder RT wo con* [id number] 06/01/2021 1:34 PM RADIATION DOSE METRICS: Total DLP (mGy-cm): 191.8 FINDINGS: Bones/joints: Osteopenia. Straightening of the normal cervical lordosis. No CT evidence of acute fracture, dislocation or subluxation. Alignment anatomic. Mild dextroscoliosis. Vertebral body heights maintained. Mild multilevel degenerative changes, characterized by disc space narrowing, osteophytosis and uncovertebral and facet joint hypertrophy. Mild multilevel spinal canal and neural foraminal narrowing. Lungs: Biapical pleural thickening. Soft tissues: Grossly unremarkable. CT/CT cervical spin wo con* [id number] IMPRESSION: 1. No CT evidence of acute cervical spine traumatic injury. 2. Additional findings, as above.
--- NOTE | 2022-02-04 17:47 | W.ED.GENADLT ---
HPI - General Adult General: Chief complaint: Fall Stated complaint: Fall, head injury Time Seen by Provider: 02/04/22 17:30 History of Present Illness: Patient is a 56-year-old male with no significant medical history presents emergency room after an episode of fall. Patient tells me that he was working in his shop around 5 PM on when he tripped and fell. Since, patient has been complaining headache and neck pain. Patient denies any injuries to the arms or legs. Patient no other associate complaints. Patient tells me that this was simple slipped and fell in his shop. Patient has been complaining headache with nausea without vomiting. Patient has no other focal complaints at this time including fever/chill, chest pain, shortness of breath, abdominal pain, dysuria/hematuria/polyuria, diarrhea/melena/hematochezia. He is not on any anticoagulation. Onset:3 days ago Duration:3 days Location:home Severity:moderate Associated symptoms: Reports headache(s); Deny chest pain, dyspnea, nausea, rash, palpitations or vomiting Review of Systems Const: Denies: fever(s) or chills Eyes: Denies: change in vision ENMT: Reports: other (+neck pain); Denies: mouth pain Card: Denies: chest pain or palpitations Resp: Denies: dyspnea or non-productive cough GI: Denies: abdominal pain, nausea, vomiting or diarrhea : Denies: dysuria Musc: Denies: extremity pain Skin/Breast: Denies: rash or new lesions Neuro: Reports: headache(s) and other (+concussion); Denies: weakness in extremities Psych: Reports: other (Normal mood) Naman/Lymph: Denies: easy bruising PFSH ED PFSH: Medical History No pertinent past medical history Social History Smoking and tobacco status: current every day smoker cigars Cigars smoked per week: 3 and smokeless tobacco Smokeless tobacco user: chewing tobacco Smokeless tobacco details: 1 can per day Alcohol intake: former Year of sobriety/quit date alcohol: 2020 Physical Exam Const: COMMON NORMALS: alert HENMT: COMMON NORMALS: atraumatic HEAD & SCALP: atraumatic MOUTH: moist mucous membranes not abnormal Eye: COMMON NORMALS: EOMs intact bilaterally and conjunctivae normal CONJUNCTIVA: Yes conjunctivae normal Neck/C-Spine: COMMON NORMALS: full ROM and supple OTHER: +mild bony C3-C4 tenderness to palpation Resp: COMMON NORMALS: normal respiratory effort and clear to auscultation bilaterally AUSCULTATION: clear to auscultation bilaterally Cardio: COMMON NORMALS: regular rate RATE: regular rate GI: COMMON NORMALS: Soft to palpation and non-tender PALPATION: Yes Soft to palpation Extremity: COMMON NORMALS: full ROM Neuro: SENSORIUM/ORIENTATION: Yes alert MOTOR EXAM: No Abnormal motor strength present and Other motor observations present (no focal motor deficits) Psych: COMMON NORMALS: speech normal SPEECH: Yes normal speech MOOD & AFFECT: Yes euthymic mood Course Vital Signs: Vital signs: Vital Signs Temperature 98.1 F 02/04/22 17:24 Pulse Rate 71 02/04/22 19:32 Respiratory Rate 16 02/04/22 18:56 Blood Pressure 117/62 02/04/22 19:32 Pulse Oximetry 99 02/04/22 19:32 Oxygen Delivery Me thod 02/04/22 18:02 [facility] - General Adult Medical Decision Making Patient is a 56-year-old male with no significant medical history presents emergency room after an episode of fall with complaints of neck pain and headache for the last 3 days. On exam, patient is mild bony C3-C4 tenderness palpation. Rest exam is unremarkable. Patient has no visible head trauma. CT head, CT C-spine negative for any acute finding. Patient received Tylenol and reports headache improved. Suspect patient is experiencing paraspinal neck pain and concussion symptoms. Rx: Tylenol, lidocaine patch, and menthol PRN pain Disposition: Discharge. Patient counseled regarding diagnostic impression, treatment plan. Patient given ED strict return precautions to return for continuation, worsening, or development of new symptoms. Instructed to f/u w/ PCP regarding symptoms today. Patient verbalized understanding. Lab Data Radiology Impressions Head CT 02/04/22 17:[address]: [address] evidence of acute intracranial pathology. 2. Additional findings, as above. Cervical Spine CT 02/04/22 17:[address]: [address] evidence of acute cervical spine traumatic injury. 2. Additional findings, as above. Imaging Data Other Imaging: Radiologist's impression: [employer] [facility] [employer] [id number] Scan Report Signed Patient: Mayank Desir Unit #: [id number] : 1965 Age/Sex: 56 / M ADM Date: 02/04/22 Loc: ER Room/Bed: Attending Dr: Ordering Provider/Ordering MD: Jaiden Pryor MD Date of Service: 02/04/22 Procedure(s): CT cervical spin wo con* [id number] Accession Number(s): [id number] Report Number: [id number] PROCEDURE INFORMATION: Exam: CT Cervical Spine Without Contrast Exam date and time: 02/04/2022 5:52 PM Age: 56 years old Clinical indication: Pain and injury or trauma; Fall; Bleeding/hemorrhage; Neck pain TECHNIQUE: Imaging protocol: Computed tomography of the cervical spine without contrast. Axial, coronal and sagittal reformatted images were created and reviewed. Radiation optimization: All CT scans at this facility use at least one of these dose optimization techniques: automated exposure control; mA and/or kV adjustment per patient size (includes targeted exams where dose is matched to clinical indication); or iterative reconstruction. COMPARISON: MR shoulder RT wo con* [id number] 06/01/2021 1:34 PM RADIATION DOSE METRICS: Total DLP (mGy-cm): 191.8 FINDINGS: Bones/joints:? Osteopenia. Straightening of the normal cervical lordosis. No CT evidence of acute fracture, dislocation or subluxation. Alignment anatomic.? Mild dextroscoliosis.? Vertebral body heights maintained. Mild multilevel degenerative changes, characterized by disc space narrowing, osteophytosis and uncovertebral and facet joint hypertrophy.? Mild multilevel spinal canal and neural foraminal narrowing. Lungs: Biapical pleural thickening. Soft tissues: Grossly unremarkable. CT/CT cervical spin wo con* [id number] IMPRESSION: 1. No CT evidence of acute cervical spine traumatic injury. 2. Additional findings, as above. ? Dictated By: Garth Dumont MD Signed By: Garth Dumont MD Signed Date/Time: 02/04/22 1838 DD/ [address] [employer] [address] [place] [id number] Scan Report Signed Patient: Mayank Desir Unit #: [id number] : 1965 Age/Sex: 56 / M ADM Date: 02/04/22 Loc: ER Room/Bed: Attending Dr: Ordering Provider/Ordering MD: Jaiden Pryor MD Date of Service: 02/04/22 Procedure(s): CT head wo con* [id number] Accession Number(s): [id number] Report Number: [id number] PROCEDURE INFORMATION: Exam: CT Head Without Contrast Exam date and time: 02/04/2022 5:52 PM Age: 56 years old Clinical indication: Injury or trauma; Fall; Blunt trauma (contusions or hematomas); Consciousness not specified TECHNIQUE: Imaging protocol: Computed tomography of the head without contrast. Axial, coronal and sagittal reformatted images were created and reviewed. Radiation optimization: All CT scans at this facility use at least one of these dose optimization techniques: automated exposure control; mA and/or kV adjustment per patient size (includes targeted exams where dose is matched to clinical indication); or iterative reconstruction. COMPARISON: No relevant prior studies available. RADIATION DOSE METRICS: Total DLP (mGy-cm): 1140.92 FINDINGS: Brain: No CT evidence of acute intracranial hemorrhage or acute territorial infarction. No significant mass effect or midline shift. Basal cisterns patent. Cerebral ventricles: Normal in size and configuration. Paranasal sinuses: Polypoid ethmoid, frontal and left maxillary sinus mucosal thickening. No air-fluid levels. Mastoid air cells: Grossly unremarkable. Bones/joints:? No acute osseous abnormality. Soft tissues: Grossly unremarkable. CT/CT head wo con* [id number] IMPRESSION: 1. No CT evidence of acute intracranial pathology. 2. Additional findings, as above. ? Dictated By: Garth Dumont MD Signed By: Garth Dumont MD Signed Date/Time: 02/04/22 183 DD/ 51 Discharge Plan Discharge Patient Disposition: Home Clinical Impression: Fall, Concussion Condition: Stable Prescriptions: New acetaminophen 500 mg tablet 500 mg PO Q6H PRN (Reason: pain) 5 Days Qty: 20 0RF lidocaine 5 % adhesive patch,medicated 1 patch topical DAILY PRN (Reason: pain) 30 Days Qty: 30 0RF Rx Instructions: leave on most painful area for up to 12 hrs Biofreeze (menthol) 5 % gel 1 ea topical BID PRN (Reason: pain) 10 Days Qty: 1 0RF No Action gabapentin 300 mg capsule 400 mg PO ONCE tizanidine 4 mg capsule 4 mg PO TID (DME) Night splint See Rx Instructions .ROUTE .MEDSUPPLY Qty: 1 0RF Rx Instructions: As directed oxycodone 5 mg tablet 5 mg PO Q4H PRN (Reason: pain) 14 Days Qty: 40 0RF ropinirole 1 mg tablet 1 mg PO DAILY cetirizine 10 mg tablet 10 mg PO DAILY tamsulosin 0.4 mg capsule 0.4 mg PO DAILY cyanocobalamin (vitamin B-12) [Vitamin B-12] 2,000 mcg Tablet Extended Release 2,000 mcg PO DAILY cefdinir 300 mg capsule 300 mg PO DAILY pregabalin [Lyrica] 75 mg Capsule 75 mg PO BID atorvastatin 40 mg Tablet 40 mg PO DAILY pantoprazole 40 mg Tablet,Delayed Release (Dr/Ec) 40 mg PO DAILY Discharge Orders: Discharge ED (Routine); Ordered 02/04/22 Ordered By: Jaiden Pryor Referrals: Lisa Watson, [facility] [Primary Care Provider] - Discharge Diet: Advance as tolerated Discharge Activity: Increase activity as tolerated Activity Restrictions/Additional Instructions: Come back if you have any new or concerning issues. Coding Level of Care Code ED [employer] Super[employer] for [employer] Fwd Exam Comprehensive
[2022-02-04] MEDS: acetaminophen 500 mg Tablet PO (18:01)
[2022-02-04 18:02] VITALS: BP 93/65; PULSE 82; RESP 16; O2SAT 98
[2022-02-04 18:56] VITALS: RESP 16
[2022-02-04] MEDS: morphine 4 mg/mL SDV 1 mL IM (18:56)
[2022-02-04 19:32] VITALS: BP 117/62; PULSE 71; O2SAT 99
== END 2022-02-04 19:33 | disposition home or self-care (01) ==
PROVIDERS: Emergency Provider Emergency Medicine; PCP Nurse Practitioner
DX: S06.0XAA Concussion with loss of consciousness status unknown, initial encounter (principal); F17.210 Nicotine dependence, cigarettes, uncomplicated; F17.220 Nicotine dependence, chewing tobacco, uncomplicated; W01.0XXA Fall on same level from slipping, tripping and stumbling without subsequent striking against object, initial encounter
CPT/HCPCS: 70450; 72125; 96372; 99285; J2270

== ENCOUNTER 2022-02-07 13:15 | Outpatient (CLI) | payer MEDICAID, SELFPAY ==
--- NOTE | 2022-02-07 13:45 | MR_ITS ---
WS: [id number] MRI LUMBAR SPINE NONCONTRAST HISTORY: lower back pain COMPARISON: None available. TECHNIQUE: Sagittal and axial multisequence imaging is submitted. Mild increase in thoracic kyphosis. Disc bulging and small osteophytes causing mild narrowing of the cervical canal from C3-4 through C6-7. Mild curvature and scoliosis of the lumbar spine benign hemangioma within L3. No acute fracture or ma rrow edema. Disc spaces and vertebral body heights are well-preserved. Conus terminates normally at L1-2 disc level. L1-L2: Mild bilateral foraminal narrowing predominantly due to facet joint arthritis. L2-L3: Mild annular disc bulging and osteophytic ridging. Moderate ligamentum flavum and facet arthri tis. Mild RIGHT subarticular recess narrowing and encroachment. Mild bilateral foraminal stenosis. L3-L4: Mild asymmetric disc bulging with moderate ligamentum flavum and facet arthritis. Mild central , bilateral subarticular recess and foraminal stenosis. Slightly greater encroachment upon the RIGHT subarticular recess. L4-L5: Mild asymmetric disc bulging with ligamentum flavum and facet arthritis. No focal protrusion. Mild bilateral foraminal stenosis. L5-S1: Mild disc bulging with mild bilateral foraminal stenosis. Visualized retroperitoneum is negative. 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 MR/MR lumbar spine wo con* [id number] IMPRESSION: 1. Mild curvature lumbar spine. No acute lumbar spine fracture. 2. Multilevel mild subarticular and foraminal stenosis. 3. Mild central, bilateral subarticular recess and foraminal stenosis at L3-4. 4. Multilevel facet joint arthritis.
== END 2022-02-07 13:16 | disposition home or self-care (01) ==
LOC: RAD 13:17
PROVIDERS: PCP Nurse Practitioner; Visit Provider Physician Assistant
DX: M43.9 Deforming dorsopathy, unspecified (principal); M48.061 Spinal stenosis, lumbar region without neurogenic claudication; M47.816 Spondylosis without myelopathy or radiculopathy, lumbar region
CPT/HCPCS: 72148; 99203

== ENCOUNTER → 2022-03-02 15:48 | Outpatient (BNVA) | payer MEDICAID, SELFPAY | PROVIDERS: PCP Nurse Practitioner; Visit Provider Physician Assistant | DX: M51.36 Other intervertebral disc degeneration, lumbar region (principal); M47.816 Spondylosis without myelopathy or radiculopathy, lumbar region | CPT/HCPCS: 99213 ==

== ENCOUNTER → 2022-03-14 14:51 | Outpatient (BNVA) | payer MEDICAID, SELFPAY | PROVIDERS: PCP Nurse Practitioner; Visit Provider Physician Assistant | DX: M47.812 Spondylosis without myelopathy or radiculopathy, cervical region; M50.322 Other cervical disc degeneration at C5-C6 level; M41.85 Other forms of scoliosis, thoracolumbar region; M51.34 Other intervertebral disc degeneration, thoracic region | CPT/HCPCS: 72050; 72072; 99214 ==

== ENCOUNTER → 2022-04-04 09:20 | Outpatient (BNVA) | payer MEDICAID, SELFPAY | PROVIDERS: PCP Nurse Practitioner; Visit Provider Anesthesiology Pain Medicine | DX: M47.816 Spondylosis without myelopathy or radiculopathy, lumbar region (principal); M51.36 Other intervertebral disc degeneration, lumbar region; M47.812 Spondylosis without myelopathy or radiculopathy, cervical region; M50.30 Other cervical disc degeneration, unspecified cervical region; M79.604 Pain in right leg; M79.605 Pain in left leg | CPT/HCPCS: 99205 ==

== ENCOUNTER 2022-06-27 08:36 | Outpatient (CLI) | payer MEDICAID, SELFPAY ==
--- NOTE | 2022-06-27 08:45 | MR_ITS ---
WS: [id number] MRI CERVICAL SPINE NONCONTRAST HISTORY: Neck pain. Chronic and progressive. COMPARISON: None available. Technique: Multiplanar, multisequence noncontrast imaging of the cervical spine. Less than 2 mm retrolisthesis of C3. Mild degenerative marrow edema in C5 and C6 vertebral bodies. Th ere is very slight anterior wedging of T3. Moderate diffuse disc space narrowing and desiccation with vertebral body osteophytes. Signal within the cervical cord is normal. Visualized posterior fossa is unremarkable. Craniocervical junction, C1 and C2 relationship, odontoid process and soft tissues are normal. C2-C3: Normal. C3-C4: Mild osteophytic ridging and annular disc bulging. Very mild LEFT foraminal stenosis. C4-C5: Mild osteophytic ridging with annular disc bulging and a central disc protrusion. Mild facet j oint arthritis. Very mild bilateral foraminal narrowing. C5-C6: Mild osteophytic ridging with bilateral foraminal and paracentral disc osteophyte complexes. M ild encroachment into the subarticular recesses. Mild central with moderate bilateral foraminal steno sis. C6-C7: Moderate osteophytic ridging and annular disc bulging with mild facet arthritis. Mild central with moderate to severe bilateral foraminal stenosis. C7-T1: No stenosis. Paravertebral soft tissues are normal. MR/MR cervical spin wo con* [id number] IMPRESSION: 1. Moderate spondylitic changes throughout the cervical spine. 2. Moderate to severe bilateral foraminal stenosis at C6-7 with mild central s tenosis. Stenosis predominantly due to osteophytes. 3. Mild LEFT foraminal stenosis at C3-4 and bilaterally at C4-5. 4. Mild central with moderate bilateral foraminal stenosis at C5-6. 5. No cord myelomalacia. 6. Chronic anterior wedging of T3, 10%.
--- NOTE | 2022-06-27 09:30 | MR_ITS ---
WS: [id number] MRI THORACIC SPINE noncontrast HISTORY: pain COMPARISON: Prior radiographs 03/14/2022. TECHNIQUE: Multiplanar sequences are performed in sagittal and axial planes. Very slight increase in thoracic kyphosis. Mild anterior wedging of T3 by 10% without retropulsion. N o acute marrow edema. The remaining vertebral bodies are normal. No acute fractures. No signal abnorm ality within the thoracic cord. No atrophy or enlargement. T1-2: Normal. T2-3: Normal. T3-4: Normal. T4-5: Normal. T5-6: Moderate RIGHT paracentral disc protrusion contacting and deforming the RIGHT lateral thecal s ac and thoracic cord. T6-7: Normal. T7-8: Normal. T8-9: Bilateral facet joint arthritis. No stenosis. T9-10: Mild facet joint arthritis. T10-11: Mild LEFT foraminal narrowing due to facet arthritis. T11-12: Mild bilateral facet joint arthritis. Paravertebral soft tissues are normal. MR/MR thoracic spin wo con* [id number] IMPRESSION: 1. Moderate RIGHT paracentral disc protrusion at T5-6 contacting and displacin g and deforming the RIGHT thecal sac and thoracic cord. 2. 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 No high-grade stenos is. 3. Remote compression fracture T3 x 10%.
== END 2022-06-27 08:37 | disposition home or self-care (01) ==
LOC: RAD 08:40
PROVIDERS: PCP Nurse Practitioner; Visit Provider Physician Assistant
DX: M48.02 Spinal stenosis, cervical region (principal); M25.78 Osteophyte, vertebrae; M51.24 Other intervertebral disc displacement, thoracic region; S22.030A Wedge compression fracture of third thoracic vertebra, initial encounter for closed fracture; M47.814 Spondylosis without myelopathy or radiculopathy, thoracic region; X58.XXXA Exposure to other specified factors, initial encounter
CPT/HCPCS: 72141; 72146

== ENCOUNTER 2022-07-16 11:00 | Emergency (ER) | payer MEDICAID, SELFPAY ==
--- NOTE | 2022-07-16 11:07 | W.ED.URI ---
HPI - URI/Sore Throat General: Chief Complaint: Upper Respiratory Infection Stated Complaint: N/V/D Time Seen by Provider: 07/16/22 11:01 History of Present Illness: Patient with upper respiratory infection x5 to 7 days including cough, nonproductive, congestion, and diarrhea. Patient is going 5 times per day with looser than baseline stool. States he has been nauseous and due to this having less desire to eat over the same time. MD elicited complaint: fever, cough, nasal congestion and sinus pain Associated symptoms: Deny abdominal pain, chest pain, diarrhea, ear or mastoid pain, headache(s), nausea or vomiting Review of Systems General: Reports: 10 or more systems reviewed and unremarkable except in HPI and below Const: Reports: body aches and fatigue Eyes: Denies: change in vision or blurry vision ENMT: Denies: throat pain, ear or mastoid pain or tinnitus Card: Denies: chest pain, irregular heart rhythm, swelling of feet/ankles, dyspnea on exertion or leg pain with exertion Resp: Reports: non-productive cough; Denies: dyspnea (COPD) or productive cough GI: Denies: abdominal pain, nausea, vomiting, heartburn, diarrhea or constipation : Denies: difficulty urinating Musc: Reports: back pain and extremity pain; Denies: neck pain, joint pain, joint stiffness, limited range of motion, muscle cramps or muscle weakness Skin/Breast: Denies: rash (FACE) or pruritus Neuro: Denies: headache(s), numbness in extremities, weakness in extremities, sensory changes, difficulty walking, dizziness or restless legs Psych: Denies: anxiety or depression PFS ED PFSH: Medical History No pertinent past medical history Social History (Updated 04/04/22 @ 09:48 by Natacha Hays LPN) Smoking and tobacco status: current every day smoker cigars Cigars smoked per week: 3 and smokeless tobacco Smokeless tobacco user: chewing tobacco Smokeless tobacco details: 1 can per day Alcohol intake: current Alcohol intake frequency: 3 or more drinks per day Alcohol type: beer Physical Exam Const: COMMON NORMALS: no acute distress, average body habitus, patient oriented x3 and well nourished EXAM LIMITATIONS: no altered mental status HENMT: COMMON NORMALS: normocephalic and atraumatic HEAD & SCALP: normocephalic and atraumatic FACE & SINUS: normal facial exam, sinuses nontender and face symmetric; no sinus tenderness and no TMJ findings MOUTH: no TMJ findings TEETH & GINGIVA: no abnormal tooth and associated gingiva THROAT: posterior oropharynx normal Eye: COMMON NORMALS: Equal, round and reactive pupils present and EOMs intact bilaterally PUPIL: Yes Equal, round and reactive pupils present Neck/C-Spine: COMMON NORMALS: full ROM and no lymphadenopathy Lymph: LYMPHATIC: no lymphadenopathy noted and no lymphedema noted Chest: COMMONS NORMALS: normal inspection of the chest and normal palpation of entire chest wall CHEST: No abnormal inspection of the chest and No Symmetrical chest wall rise Resp: COMMON NORMALS: normal respiratory effort, No retractions and clear to auscultation bilaterally AUSCULTATION: clear to auscultation bilaterally Cardio: COMMON NORMALS: regular rate and regular rhythm RATE: regular rate RHYTHM: regular rhythm GI: COMMON NORMALS: Normal to inspection, nondistended, normoactive bowel sounds present and Soft to palpation PALPATION: Yes Soft to palpation : COMMON NORMALS: Yes no CVA tenderness BLADDER/KIDNEY EXAM: Yes no CVA tenderness Back/Pelvis: COMMON NORMALS: no CVA tenderness Extremity: COMMON NORMALS: normal to inspection Neuro: COMMON NORMALS: patient oriented x3 GAIT: Yes Normal gait present Course Vital Signs: Vital signs: Vital Signs Temperature 98.4 F 07/16/22 11:36 Pulse Rate 91 07/16/22 13:40 Blood Pressure 118/87 07/16/22 12:38 Pulse Oximetry 98 07/16/22 13:40 Oxygen Delivery Ca thod 07/16/22 13:40 MDM - URI/Sore Throat Medical Decision Making 57-year-old male with upper respiratory symptoms times few days. Vitals with tachycardia improved with oral hydration and intravenous fluid administration. Patient states he feels much better after ibuprofen, Zofran, and Tylenol. Vitals remained nonactionable afterwards. Social determinants of health include [place]. Diagnoses considered include bacterial sinusitis, superimposed bacterial pneumonia, viral syndrome, COPD exacerbation, ACS, others. With complete improvement of symptoms and patient requesting to be discharged feel less likely concomitant illness present with improved vital signs. Advised on reasons to return to the emergency department quitting dehydration. Prescribe Zofran for symptomatic relief. Patient not meeting IDSA guidelines for initiation of antibiotic use. Counseled on [id number] relief with scheduled analgesics and nasal saline. Educated about reasons to return and signs of worsening pathology. Differential Diagnosis Likely upper respiratory infection, viral infection and bronchitis; Unlikely otitis media or pharyngitis Medical Records I reviewed the patient's medical records. Lab Data I reviewed the patient's lab results. Laboratory Results Nasal Influ A H1 2009 PCR Not detected (NOT DETECT) 07/16/22 12:30 Coronavirus 229E (PCR) Not detected (NOT DETECT) 07/16/22 12:30 Influenza A (H1) PCR Not detected (NOT DETECT) 07/16/22 12:30 Influenza A (H3) PCR Not detected (NOT DETECT) 07/16/22 12:30 Influenza Type A Ag Cancelled 07/16/22 12:30 Influenza Type A (PCR) Not detected (NOT DETECT) 07/16/22 12:30 Influenza Type B Ag Cancelled 07/16/22 12:30 Influenza Type B (PCR) Not detected (NOT DETECT) 07/16/22 12:30 SARS-CoV-2 (PCR) Not detected (NOT DETECT) 07/16/22 12:30 Discharge Plan Discharge Patient Disposition: Home Clinical Impression: Viral infection Condition: Stable Prescriptions: New ondansetron 4 mg tablet,disintegrating 4 mg PO DAILY PRN (Reason: nausea and vomiting) 5 Days Qty: 14 0RF No Action gabapentin 300 mg capsule 400 mg PO ONCE tizanidine 4 mg capsule 4 mg PO TID (DME) Night splint See Rx Instructions .ROUTE .MEDSUPPLY Qty: 1 0RF Rx Instructions: As directed oxycodone 5 mg tablet 5 mg PO Q4H PRN (Reason: pain) 14 Days Qty: 40 0RF prednisone 20 mg tablet 20 mg PO DAILY Qty: 15 0RF Rx Instructions: 60 mg x 3 days 40 mg x 2 days 20 mg x 2 days tadalafil [Cialis] 10 mg tablet 10 mg PO DAILY PRN Rx Instructions: administer approximately 30min before sexual activity; do not use more than 1 dose per 24hrs MARIJUANA inhalation ropinirole 1 mg tablet 1 mg PO DAILY cetirizine 10 mg tablet 10 mg PO DAILY tamsulosin 0.4 mg capsule 0.4 mg PO DAILY cyanocobalamin (vitamin B-12) [Vitamin B-12] 2,000 mcg Tablet Extended Release 2,000 mcg PO DAILY cefdinir 300 mg capsule 300 mg PO DAILY pregabalin [Lyrica] 75 mg Capsule 75 mg PO BID atorvastatin 40 mg Tablet 40 mg PO DAILY pantoprazole 40 mg Tablet,Delayed Release (Dr/Ec) 40 mg PO DAILY Discharge Orders: Discharge ED (Routine); Ordered 07/16/22 Ordered By: Garth Churchill Referrals: Lisa Watson FNP [Primary Care Provider] - Discharge Diet: Advance as tolerated Discharge Activity: Resume usual activity Patient Instructions: Viral Syndrome - Adult Activity Restrictions/Additional Instructions: Follow-up with regular doctor for results of viral testing. Be sure to drink plenty of fluids at home. Take 1000 mg of Tylenol for 100 mg of Motrin at breakfast lunch and dinner for improvement of your symptoms. If your symptoms do not improve in the next 3 days return to your regular doctor's office for possible antibiotic prescription. Coding Level of Care Code ED Coat Room Attendant for Dorian Cruz
[2022-07-16 11:36] VITALS: BP 96/65; PULSE 119; TEMP 36.9; O2SAT 99; BMI 23.0
[2022-07-16] MEDS: acetaminophen 325 mg Tablet 650 MG PO (12:25)
[2022-07-16] MEDS: ibuprofen 200 mg Tablet 400 MG PO (12:25)
[2022-07-16 12:38] VITALS: BP 118/87; PULSE 101; O2SAT 98
[2022-07-16] MEDS: sodium chloride 0.9% 1,000 ML 999 ML IV (13:12)
[2022-07-16] MEDS: ondansetron 2 mg/ML SDV 2 mL 8 MG IVP (13:12)
[2022-07-16 13:40] VITALS: PULSE 91; O2SAT 98
[2022-07-16 14:32] LABS: Adenovirus Not Detected (NOT DETECT); Chlamydia Pneumoniae Not Detected (NOT DETECT); Coronavirus 229E,HKU1,NL63,OC4 Not Detected (NOT DETECT); Human Metapneumovirus Not Detected (NOT DETECT); Human Rhinovirus/Enterovirus Not Detected (NOT DETECT); Influenza A Not Detected (NOT DETECT); Influenza A H1 Not Detected (NOT DETECT); Influenza A H1-2009 Not Detected (NOT DETECT); Influenza A H3 Not Detected (NOT DETECT); Influenza B Not Detected (NOT DETECT); Mycoplasma Pneumoniae Not Detected (NOT DETECT); Parainfluenza Virus Type 1 Not Detected (NOT DETECT); Parainfluenza Virus Type 2 Not Detected (NOT DETECT); Parainfluenza Virus Type 3 Not Detected (NOT DETECT); Parainfluenza Virus Type 4 Not Detected (NOT DETECT); Respiratory Syncytial Virus A Not Detected (NOT DETECT); Respiratory Syncytial Virus B Not Detected (NOT DETECT); SARS-COV-2 Not Detected (NOT DETECT)
[2022-07-16 14:38] LABS: Influenza A Not Detected (NOT DETECT); Influenza A H1 Not Detected (NOT DETECT); Influenza A H1-2009 Not Detected (NOT DETECT); Influenza A H3 Not Detected (NOT DETECT); Influenza B Not Detected (NOT DETECT); Results from Genmark
[2022-07-16 14:43] VITALS: BP 117/82; PULSE 86; O2SAT 98
== END 2022-07-16 14:49 | disposition home or self-care (01) ==
PROVIDERS: Emergency Provider General Practice; PCP Nurse Practitioner
DX: B34.9 Viral infection, unspecified (principal); Z20.822 Contact with and (suspected) exposure to COVID-19; F17.220 Nicotine dependence, chewing tobacco, uncomplicated; F17.290 Nicotine dependence, other tobacco product, uncomplicated
CPT/HCPCS: 87631; 87635; 96361; 96374; 99284; J2405; J7030

== ENCOUNTER → 2022-07-20 14:18 | Outpatient (BNVA) | payer MEDICAID, SELFPAY | PROVIDERS: PCP Nurse Practitioner; Visit Provider Physician Assistant | DX: M47.22 Other spondylosis with radiculopathy, cervical region (principal); M54.6 Pain in thoracic spine | CPT/HCPCS: 99213 ==

== ENCOUNTER → 2022-08-01 10:05 | Outpatient (BNVA) | payer MEDICAID, SELFPAY | PROVIDERS: PCP Nurse Practitioner; Visit Provider Orthopaedic Surgery | DX: M47.22 Other spondylosis with radiculopathy, cervical region (principal) | CPT/HCPCS: 99214 ==

== ENCOUNTER → 2022-10-05 09:25 | Outpatient (BNVA) | payer MEDICAID, SELFPAY | PROVIDERS: PCP Nurse Practitioner; Visit Provider Internal Medicine Cardiovascular Disease | DX: R07.9 Chest pain, unspecified (principal); J44.9 Chronic obstructive pulmonary disease, unspecified; Z72.0 Tobacco use; K21.9 Gastro-esophageal reflux disease without esophagitis; R94.31 Abnormal electrocardiogram [ECG] [EKG] | CPT/HCPCS: 93005; 99204 ==

== ENCOUNTER 2022-12-22 10:00 | Outpatient (CLI) | payer OTHER, MEDICAID, SELFPAY | END 2022-12-22 10:01 | LOC: CDL 06-18 12:04 | PROVIDERS: PCP Nurse Practitioner; Visit Provider Internal Medicine Cardiovascular Disease | DX: R07.9 Chest pain, unspecified (principal); Z01.818 Encounter for other preprocedural examination; R47.82 Fluency disorder in conditions classified elsewhere | CPT/HCPCS: 36415; 96374 ==

== ENCOUNTER 2023-02-26 07:28 | Outpatient (CLI) | payer MEDICARE, MEDICAID, SELFPAY ==
--- NOTE | 2023-02-26 | ECG_ITS ---
[facility] Test Date: 2023-02-26 Pat Name: Mayank Desir Department: Room: Gender: Male Packing Shed Supervisor: Carolynn Roman : 1965 Requested By: Petty Najera Order Number: [id number] Yamilet MD: Petty Najera M.D. Interpretive Statements NAME OF STUDY: LEXISCAN SESTAMIBI STRESS TEST INDICATION: [Chest Pain ] PROCEDURE: At the baseline, the blood pressure was 127/82 mm Hg with a heart rate of 76 bpm. The electrocardiogram showed sinus rhythm, normal axis with normal ST and T's. ??? The Lexiscan was infused over a period of 20 seconds. A total of 0.4 milligrams of Lexiscan was infused. The stress phase was continued for a total of 5 minutes. Heart rate at the end of the stress phase was 101 bpm with a blood pressure of 135/87 mm Hg. The EKG at the peak infusion revealed no significant ST-T wave changes.. ??? Sestamibi was injected 20 seconds after the Lexiscan infusion. ??? Blood pressure at the end of the recovery phase was 134/97 mm Hg with a heart rate of 100 beats per minute. ??? CONCLUSION: 1. Normal EKG response to LexiScan infusion. 2. No LexiScan induced chest pain or cardiac arrhythmia. 3. Normal blood pressure and heart rate response. 4. Sestamibi/sestamibi perfusion scan pending; see separate report. Electronically Signed On 02-26-2023 13:57:31 AIRCRAFT ASSEMBLER by Petty Najera M.D. [id number]
[2023-02-26 08:01] VITALS: BMI 22.3
--- NOTE | 2023-02-26 08:01 | NMCV_ITS ---
NM darian perf SPECT r/s* [id number] Mayank Desir Age: 57 Gender: M : 1965 Exam Date: 02/26/2023 08:01 Ordering Phys: Petty Najera MD ([email or web address]) Technologist: STARR Sparks Exam Location: [facility] Indications: CHEST PAIN STRESS TEST Please see separate stress test report in [facility] for full findings IMAGE PROTOCOL Rest/Stress 1 Lexiscan Day Radiopharmaceutical Dose (mCi) Administration Site Administered by Rest: Tc-99m 10.9 IV STARR Knight Sestamibi Stress:Tc-99m 32.8 IV STARR Knight Sestamibi Rest: 26-Feb-2023 60 Discovery 630 Stress: 26-Feb-2023 30 Discovery 630 0.4mg Lexiscan. Images obtained in supine and prone position. SPECT RESULTS Technical Quality: Excellent Raw Data Analysis: Normal Image Corrections: No attenuation or motion correction applied Summed Stress Score: 1 Summed Rest Score: 1 Summed Difference Score: 1 PERFUSION FINDINGS A small area of slightly decreased tracer uptake was noted in the mid inferolateral region. No significant reversibility was noted with the SPECT imaging. But with the polar there appears to have some reversibility. FUNCTIONAL RESULTS (calculated via Gated SPECT) Stress Image LV EF (%): 57 Stress EDV (mL):99 TID: 0.91 Stress ESV (mL):43 FUNCTIONAL FINDINGS: Segmental wall motion analysis revealing no gross wall motion abnormalities IMPRESSIONS 1. Myocardial perfusion imaging revealing small area of slightly decreased aseptic in the inferolateral region with some inconsistent reversibility , most likely artifactual. 2. Normal LV ejection fraction of 57%. 3. LV wall motion analysis revealing no gross wall motion abnormalities. 4. Normal LV volume LV volume, upper limit of normal. Low probability for coronary ischemia, based on the above findings Dr Manish Israel MD [facility] (Electronically Signed) Final Date: 02 March 2023 10:15 S
[2023-02-26] MEDS: regadenoson 0.4 Mg/5 ml Syringe IVP (09:34)
[2023-02-26 09:43] VITALS: BP 134/97; PULSE 100
== END 2023-02-26 07:29 | disposition home or self-care (01) ==
LOC: CDL 07:33
PROVIDERS: PCP Nurse Practitioner; Visit Provider Internal Medicine Cardiovascular Disease
DX: R07.9 Chest pain, unspecified (principal)
CPT/HCPCS: 36415; 78452; 93017; 96374; A9500; J2785

== ENCOUNTER 2023-05-24 10:46 | Emergency (ER) | payer MEDICARE, MEDICAID, SELFPAY ==
[2023-05-24 10:46] VITALS: BP 118/75; PULSE 123; RESP 18; TEMP 37.1; O2SAT 96; BMI 25.7
[2023-05-24 11:39] LABS: Basophils % 0.4 %; Eosinophils # 0.1 10^3/uL (0.0-0.8); Eosinophils % 0.5 %; Hematocrit 46.2 % (37-53); Lymphocytes # 1.1 10^3/uL (0.8-4.8); Lymphocytes % 10.1 %; Mean Corpuscular HGB Conc 33.8 g/dL (30-55); Mean Corpuscular Hemoglobin 30.6 pg (27-33); Mean Corpuscular Volume 90.6 fl (82-101); Mean Platelet Volume 9.6 fL (7.4-10.4); Monocytes # 0.9 10^3/uL (0.2-0.9); Monocytes % 8.4 %; Neutrophils % 79.4 %; Nucleated Red Blood Cells % 0 %; Platelet Count 267 10^3/cmm (157-399); Red Cell Distribution Width 12.6 % (12.1-15.1); White Blood Count 10.46 10^3/uL (3.29-11.43)
[2023-05-24 11:54] LABS: Alanine Aminotransferase 21 U/L (0-41); Alkaline Phosphatase 99 U/L (40-130); Aspartate Amino Transferase 17 U/L (0-40); Blood Urea Nitrogen 21 mg/dL (6-20); Calcium 8.8 mg/dL (8.5-10.5); Carbon Dioxide 24 mmol/L (22-29); Chloride 102 mmol/L (98-107); Globulin 3.1 g/dL (1.3-4.6); Glomerular Filtration Rate 99.3 mL/min (90-130); Glucose 129 mg/dL (65-115); Lipase 79 U/L (13-60); Osmolality Calculated 289 mOsm/kg (285-295); Sodium 137 mmol/L (136-145); Total Bilirubin 0.2 mg/dL (0.15-1.2); Total Protein 7.1 g/dL (6.6-8.7)
--- NOTE | 2023-05-24 13:18 | ED_ITS ---
HPI - Abdominal Pain 2 General: Chief Complaint: Abdominal Pain Stated Complaint: abd pain Time Seen by Provider: 05/24/23 13:17 Source: patient Mode of arrival: ambulatory History of Present Illness: 49-year-old male presents emergency room with complaint abdominal pain last several days. States he was seen in the office setting was started on ciprofloxacin for UTI. He has not had any dysuria urgency or frequency no hematemesis or coffee-ground emesis. No vomiting or diarrhea. He does use marijuana products fairly regularly. MD elicited complaint: abdominal pain Onset (ago): day(s) Pain Consistency: constant Location: Epigastric Severity: moderate Quality: cramping Radiation: none Exacerbating factors: nothing Relieving factors: nothing Associated Symptoms: Reports bloating and GI cramping; Denies anorexia, belching, change in bowel habits, change in stool character, chills, coffee ground emesis, constipation, diarrhea, dyspepsia, dysuria, excessive flatus, fever(s), heartburn, hematochezia, hematuria, hematemesis, fecal incontinence, loose stools, melena, nausea, poor appetite, syncope and vomiting Review of Systems 2 Const: Denies: fever(s), chills, fatigue or malaise Card: Denies: chest pain or syncope Resp: Denies: dyspnea GI: Reports: abdominal pain, bloating and GI cramping; Denies: nausea, vomiting, hematemesis, coffee ground emesis, heartburn, diarrhea, constipation, belching, excessive flatus, fecal incontinence, change in bowel habits, change in stool character, hematochezia or melena : Denies: flank pain, dysuria, urinary frequency, urinary urgency or hematuria Musc: Denies: neck pain or back pain Skin/Breast: Denies: rash PFSH ED 2 PFSH: Medical History GERD (gastroesophageal reflux disease) Tobacco abuse Peripheral neuropathy COPD (chronic obstructive pulmonary disease) No pertinent past medical history Family History Mother Myocardial infarction Stroke Hypertension Diabetes Father Hypertension Diabetes Social History Smoking and tobacco/nicotine status: current every day tobacco/nicotine user cigars Cigars smoked per week: 3 and smokeless tobacco Smokeless tobacco user: chewing tobacco Smokeless tobacco details: 1 can per day Alcohol intake: current Alcohol intake frequency: 3 or more drinks per day Alcohol type: beer Substance/Drug Use: current Substance/Drug use frequency: few times a month Physical Exam 2 Const: GENERAL APPEARANCE: cooperative and comfortable O RIENTATION/CONSCIOUSNESS: Yes awake, Yes oriented to person, Yes oriented to place and Yes oriented to time HENMT: COMMON NORMALS: normocephalic, atraumatic and hearing grossly normal bilaterally HEAD & SCALP: normocephalic and atraumatic Resp: COMMON NORMALS: normal respiratory effort, No retractions, No use of accessory muscles and clear to auscultation bilaterally AUSCULTATION: clear to auscultation bilaterally Cardio: COMMON NORMALS: regular rate, regular rhythm and No murmurs present (Cardio) RATE: regular rate RHYTHM: regular rhythm GI: COMMON NORMALS: Soft to palpation and No hepatosplenomegaly present A USCULTATION: Yes normoactive bowel sounds PALPATION: Yes Soft to palpation, No Tenderness to palpation present (GI), No Guarding due to palpation present (GI) and Yes No hepatosplenomegaly present Extremity: COMMON NORMALS: normal to inspection, capillary refill normal, no clubbing, cyanosis or edema, no calf tenderness and no pedal edema Neuro: SENSORIUM/ORIENTATION: Yes oriented to person, Yes oriented to place and Yes oriented to time Skin: COMMON NORMALS: no rashes or lesions noted GENERAL SKIN EXAM: no rashes or lesions noted Course 2 Vital Signs: Vital signs: Vital Signs Temperature 98.7 F 05/24/23 10:46 Pulse Rate 88 05/24/23 15:01 Respiratory Rate 18 05/24/23 15:01 Blood Pressure 130/91 05/24/23 15:01 Pulse Oximetry 96 05/24/23 15:01 Oxygen Delivery Me thod Room Air 05/24/23 14:55 MDM - Abdominal Pain Medical Decision Making Patient discharged home with pantoprazole. Stop ciprofloxacin. Follow-up with primary care. Medical Records I reviewed the patient's medical records. Lab Data I reviewed the patient's lab results. 05/24/23 11:31 05/24/23 11:31 Labs/Radiology: Laboratory Results WBC 10.46 10^3/uL (3.29-11.43) 05/24/23 11:31 RBC 5.10 10^6/uL (3.85-5.65) 05/24/23 11:31 Hgb 15.60 g/dL (11.27-16.99) 05/24/23 11:31 Hct 46.2 % (37-53) 05/24/23 11:31 MCV 90.6 fl (82-101) 05/24/23 11:31 MCH 30.6 pg (27-33) 05/24/23 11:31 MCHC 33.8 g/dL (30-55) 05/24/23 11:31 RDW 12.6 % (12.1-15.1) 05/24/23 11:31 Plt Count 267 10^3/cmm (157-399) 05/24/23 11:31 MPV 9.6 fL (7.4-10.4) 05/24/23 11:31 Neut % (Auto) 79.4 % 05/24/23 11:31 Lymph % (Auto) 10.1 % 05/24/23 11:31 Fajardo % (Auto) 8.4 % 05/24/23 11:31 Eos % (Auto) 0.5 % 05/24/23 11:31 Baso % (Auto) 0.4 % 05/24/23 11:31 Neut # (Auto) 8.30 10^3/uL (1.8-7.7) H 05/24/23 11:31 Lymph # (Auto) 1.1 10^3/uL (0.8-4.8) 05/24/23 11:31 Fajardo # (Auto) 0.9 10^3/uL (0.2-0.9) 05/24/23 11:31 Eos # (Auto) 0.1 10^3/uL (0.0-0.8) 05/24/23 11:31 Baso # (Auto) 0.0 10^3/uL (0.0-0.1) 05/24/23 11:31 Nucleated RBC % (auto) 0 % 05/24/23 11:31 Nucleated RBCs # 0.0 /100WBC 05/24/23 11:31 Sodium 137 mmol/L (136-145) 05/24/23 11:31 Potassium 4.0 mmol/L (3.5-5.1) 05/24/23 11:31 Chloride 102 mmol/L (98-107) 05/24/23 11:31 Carbon Dioxide 24 mmol/L (22-29) 05/24/23 11:31 Anion Gap 15.0 (5-19) 05/24/23 11:31 BUN 21 mg/dL (6-20) H 05/24/23 11:31 Creatinine 0.8 mg/dL (0.7-1.2) 05/24/23 11:31 GFR Calculation 99.3 mL/min (90-130) 05/24/23 11:31 Glucose 129 mg/dL (65-115) H 05/24/23 11:31 Calculated Osmolality 289 mOsm/kg (285-295) 05/24/23 11:31 Calcium 8.8 mg/dL (8.5-10.5) 05/24/23 11:31 Total Bilirubin 0.2 mg/dL (0.15-1.2) 05/24/23 11:31 AST 17 U/L (0-40) 05/24/23 11:31 ALT 21 U/L (0-41) 05/24/23 11:31 Alkaline Phosphatase 99 U/L (40-130) 05/24/23 11:31 Total Protein 7.1 g/dL (6.6-8.7) 05/24/23 11:31 Albumin 4.0 g/dL (3.5-5.2) 05/24/23 11:31 Globulin 3.1 g/dL (1.3-4.6) 05/24/23 11:31 Lipase 79 U/L (13-60) H 05/24/23 11:31 Urine Color Yellow (Yellow) 05/24/23 14:11 Urine Appearance Clear (CLEAR) 05/24/23 14:11 Urine pH 5 (5-7) 05/24/23 14:11 Ur Specific [place] 1.020 (1.005-1.030) 05/24/23 14:11 Urine Protein Neg (Negative) 05/24/23 14:11 Urine Glucose (UA) Norm (Normal) 05/24/23 14:11 Urine Ketones Negative (Negative) 05/24/23 14:11 Urine Blood Neg (Negative) 05/24/23 14:11 Urine Nitrate Negative (Negative) 05/24/23 14:11 Urine Bilirubin Neg (Negative) 05/24/23 14:11 Urine Urobilinogen Norm mg/dL (Negative) 05/24/23 14:11 Ur Leukocyte Esterase Trace (Negative) H 05/24/23 14:11 Urine RBC 0-4 /hpf (0-2) H 05/24/23 14:11 Urine WBC 0-4 /hpf (0-5) H 05/24/23 14:11 Ur Squamous Epith Cells None /hpf (0-5) 05/24/23 14:11 Amorphous Sediment Not Reportable 05/24/23 14:11 Urine Bacteria None /hpf (NONE) 05/24/23 14:11 Urine Mucus Trace /hpf 05/24/23 14:11 No radiology studies performed this visit Discharge Plan Discharge Patient Disposition: Home Clinical Impression: GERD (gastroesophageal reflux disease), Abdominal pain Condition: Stable Prescriptions: New Protonix 40 mg tablet,delayed release (DR/EC) 40 mg PO BID Qty: 60 0RF Discontinued metronidazole 500 mg tablet 500 mg PO Q8H ciprofloxacin HCl 500 mg tablet 500 mg PO Q12H pantoprazole 20 mg tablet,delayed release (DR/EC) 20 mg PO DAILY No Action tizanidine 4 mg capsule 4 mg PO TID PRN (Reason: Spasms) cholecalciferol (vitamin D3) 1,250 mcg (50,000 unit) capsule 50,000 unit PO .once weekly Rx Instructions: ON SUNDAY montelukast 10 mg tablet 10 mg PO DAILY nitroglycerin [Nitrostat] 0.4 mg tablet, sublingual 0.4 mg sublingual Q5M PRN (Reason: Chest Pain) Rx Instructions: do not exceed 3 doses per episode MARIJUANA 1 inh inhalation PRN cyanocobalamin (vitamin B-12) [Vitamin B-12] 2,000 mcg Tablet Extended Release 2,000 mcg PO DAILY atorvastatin 40 mg Tablet 40 mg PO DAILY gabapentin 600 mg tablet 600 mg PO TID tamsulosin 0.4 mg capsule 0.4 mg PO DAILY ropinirole 2 mg tablet 2 mg PO TID PRN (Reason: FOOT PAIN) mupirocin 2 % ointment 1 applic TOPICAL TID Discharge Orders: Discharge ED (Routine); Ordered 05/24/23 Ordered By: Laron Tesfaye Referrals: Lisa Watson FNP [Primary Care Provider] - Discharge Diet: As Directed Discharge Activity: Increase activity as tolerated Patient Instructions: Diet for Stomach Ulcers and Gastritis (ED), Abdominal Pain (ED), Opioid Safety, Pain Management Activity Restrictions/Additional Instructions: Thank you for choosing [facility] for your healthcare needs today. Please realize this is an emergency room and that we are providing you with a medical screening exam and this may not be complete and all inclusive of all the testing and or work up that you may need to determine your ailment or severity of your illness. It is very important that you follow up as instructed or that you return to the Emergency Department should you have concerns or if your condition changes or worsens in any way. Stop ciprofloxacin, stop oral prednisone. Increase pantoprazole to 40 mg twice daily and follow-up with your primary care doctor within the next week. Coding Level of Care Code ED Health Policy Analyst for Dorian Cruz
--- NOTE | 2023-05-24 13:19 | CT_ITS ---
WS: [id number] CT ABDOMEN AND PELVIS NONCONTRAST HISTORY: Abdominal pain TECHNIQUE: Imaging performed through the abdomen and pelvis. Coronal and sagittal reformats are submi tted. All CT scans at [facility] use at least one of these dose optimization techniques: auto mated exposure control; mA and/or kV adjustment per patient size (includes targeted exams where dose is matched to clinical indication); or iterative reconstruction. DLP: 503.63 mGy.cm COMPARISON: 11/15/2020 Lower thorax: Dependent changes at the lung bases. Heart is normal size. Liver: Reidentified is an 8 mm low-attenuation nodule at the superior RIGHT liver surface which was p resent on the prior study. Gallbladder: Normal gallbladder. No pericholecystic fluid or cholelithiasis. No gallbladder wall thic [place]. Pancreas: Normal size and attenuation. Normal pancreatic duct. No pancreatitis or mass. Spleen: Normal size spleen with granulomata. Adrenal glands: Normal. No mass. Right kidney: Normal size kidney with no mass or hydronephrosis. Left kidney: Normal size kidney with no mass or hydronephrosis. Aorta: Normal abdominal aorta, no aneurysm or atherosclerosis. No free fluid, intraperitoneal air or significant lymphadenopathy. GI tract: Nondistended stomach. No small bowel obstruction. Normal appendix. Distal colonic diverticu losis without acute diverticulitis. No obstruction. Abdominal wall: Negative. No hernia. Pelvis: No free fluid. Osseous structures: LEFT curvature lumbar spine. IMPRESSION: 1. No acute abdominal or pelvic abnormalities identified. 2. No GI tract obstruction. 3. Sigmoid diverticulosis without acute diverticulitis. 4. No free air or free fluid. 5. Normal appendix.
[2023-05-24] MEDS: iohexol 350 mg/mL 500 mL Btl (per mL) IV (13:31)
--- NOTE | 2023-05-24 13:50 | PC.PHAR ---
SPOUSE TAKES CARE OF MEDS AND WILL RETURN FROM [facility] IN A FEW MINUTES. 05/24/23 1:51PM
[2023-05-24 14:17] VITALS: BP 120/84; PULSE 87; RESP 18; O2SAT 96
[2023-05-24 14:43] LABS: Add Urine Microscopic? YES; Bilirubin Urine Neg (Negative); Blood Urine Neg (Negative); Glucose Urine UA Norm (Normal); Ketones Urine Negative (Negative); Leukocyte Esterase Urine Trace (Negative); Nitrate Urine Negative (Negative); Protein Urine Neg (Negative); Urine Appearance Clear (CLEAR); Urine Color Yellow (Yellow); Urobilinogen Urine Norm (Negative); pH Urine 5 (5-7)
[2023-05-24 14:55] VITALS: BP 130/91; PULSE 88; RESP 18; O2SAT 96
[2023-05-24 14:57] LABS: Add Urine Culture? No; Mucus Urine TRACE /hpf; RBC Urine 0-4 /hpf (0-2); WBC Urine 0-4 /hpf (0-5)
[2023-05-24 15:01] VITALS: BP 130/91; PULSE 88; RESP 18; O2SAT 96
== END 2023-05-24 15:02 | disposition home or self-care (01) ==
PROVIDERS: Emergency Medicine; Emergency Provider Family Medicine; PCP Nurse Practitioner
DX: K21.9 Gastro-esophageal reflux disease without esophagitis (principal); R10.9 Unspecified abdominal pain; F17.220 Nicotine dependence, chewing tobacco, uncomplicated; J44.9 Chronic obstructive pulmonary disease, unspecified
CPT/HCPCS: 36415; 74176; 80053; 81001; 83690; 85025; 99285; Q9967

== ENCOUNTER → 2023-06-07 12:41 | Outpatient (BNVA) | payer MEDICARE, MEDICAID, SELFPAY | PROVIDERS: PCP Nurse Practitioner; Visit Provider Nurse Practitioner Family | DX: R07.89 Other chest pain (principal); F17.210 Nicotine dependence, cigarettes, uncomplicated | CPT/HCPCS: 99213 ==